=== PATIENT | female | born 1940 | race Caucasian/White ===

== ENCOUNTER 2017-02-28 16:12 | Observation (INO) | payer MEDICARE ==
[2017-02-28] MEDS ORDERED: MILK OF MAGNESIA 30 ML PO PRN (17:27)
[2017-02-28] MEDS ORDERED: TYLENOL 325 MG PO PRN (17:27)
[2017-02-28] MEDS ORDERED: MAALOX ES 30 ML UNIT DOSE PO PRN (17:27)
[2017-02-28] MEDS ORDERED: MORPHINE SULFATE 2 MG INJ IV PRN (17:27)
[2017-02-28] MEDS ORDERED: Nitrostat 0.4 MG Tablet SL PRN (17:27)
[2017-02-28] MEDS ORDERED: Senokot-S Tablet PO PRN (17:27)
[2017-02-28] MEDS ORDERED: Zofran 4 MG/2 ML VIAL IV PRN (17:27)
[2017-02-28] MEDS ORDERED: Phenergan 25 MG INJ IV PRN (17:27)
[2017-02-28] MEDS ORDERED: Sodium Chloride 0.9% 500 ML 500 ML IV SCH (17:30)
[2017-02-28] MEDS ORDERED: NovoLOG Insulin SQ PRN (17:34)
[2017-02-28 18:35] LABS: Hematocrit 35.5 % (35-47); Hemoglobin 11.4 gm/dl (12.0-16.0); Mean Cell Volume 95.4 fl (78-100); Mean Corpuscular Hemoglobin 30.6 pg (26-32); Mean Corpuscular Hgb Concent. 32.1 g/dl (32-36); Mean Platelet Volume 10.2 fl (6-9.5); Platelet Count 308 K/mm3 (150-450); Red Blood Count 3.72 M/mm3 (4.1-5.4); Red Cell Distribution Width 12.8 % (11.5-14.0)
[2017-02-28 19:28] LABS: ALBUMIN 3.5 g/dL (3.4-5.0); ANION GAP 12.7 MEQ/L (5-15); BILIRUBIN,TOTAL 0.2 mg/dL (0.2-1.0); Calcium 9.3 mg/dL (8.5-10.1); Carbon Dioxide 28.3 mEq/L (21-32); Creatinine 1 1.26 mg/dl (0.55-1.30); Potassium 4.4 mEq/L (3.5-5.1); Total Protein 7.4 gm/dL (6.4-8.2)
[2017-02-28] MEDS ORDERED: PLAVIX 75 MG Tablet PO SCH (22:00)
[2017-02-28] MEDS ORDERED: Lantus Insulin SQ SCH (22:00)
[2017-02-28] MEDS ORDERED: Toprol Xl 100 MG PO SCH (22:00)
[2017-02-28] MEDS ORDERED: NEURONTIN 300 MG ONE (22:07)
[2017-02-28] MEDS ORDERED: Neurontin 100 MG ONE (22:07)
[2017-02-28] MEDS: Neurontin 400 MG PO SCH (22:12)
[2017-03-01 06:17] LABS: Risk Ratio 2.7
[2017-03-01] MEDS ORDERED: NON-FORMULARY ITEM (Potassium Chloride 20 Meq [Klor-Con 20 Meq] 20 MEQ) PO SCH (06:45)
[2017-03-01] MEDS ORDERED: ERGOCALCIFEROL 5000 UNIT PO SCH (06:45)
[2017-03-01 07:49] VITALS: O2SAT 95
[2017-03-01] MEDS ORDERED: Amaryl 2 MG PO SCH (08:00)
[2017-03-01] MEDS ORDERED: Glucophage 500 MG PO SCH (08:00)
[2017-03-01] MEDS: Neurontin 400 MG PO SCH (09:11)
[2017-03-01] MEDS ORDERED: VITAMIN D PO SCH (10:00)
[2017-03-01] MEDS ORDERED: Lasix 40 MG PO SCH (10:00)
[2017-03-01] MEDS ORDERED: Klor Con 10 MEQ PO SCH (10:00)
[2017-03-01] MEDS ORDERED: Imdur 60MG PO SCH (10:00)
[2017-03-01] MEDS ORDERED: Zestril 20 MG PO SCH (10:00)
[2017-03-01] MEDS ORDERED: hydroDIURIL 25 MG PO SCH (10:00)
[2017-03-01] MEDS ORDERED: NON-FORMULARY ITEM (Lisinopril [Lisinopril] 40 MG) PO SCH (10:00)
--- NOTE | 2017-03-01 12:25 | PCM.SSS ---
History of Present Illness - Chief Complaint Chief Complaint: Chest Pain R/O [place] History of Present Illness: see H&P - Review of Systems Constitutional: No Fever, No Chills Eyes: No Symptoms Ears, Nose, & Throat: No Symptoms Respiratory: No Cough, No Short Of Breath Cardiac: Chest Pain, No Edema, No Syncope Abdominal/Gastrointestinal: No Abdominal Pain, No Nausea, No Vomiting, No Diarrhea Genitourinary Symptoms: No Dysuria Musculoskeletal: No Back Pain, No Neck Pain Skin: No Rash Neurological: No Dizziness, No Focal Weakness, No Sensory Changes Psychological: No Symptoms Endocrine: No Symptoms Hematologic/Lymphatic: No Symptoms Immunological/Allergic: No Symptoms Medications & Allergies Home Medications: Home Medication List Metoprolol Succinate 100 mg [Toprol Xl 100 MG] 100 mg PO HS 10/03/11 [ History Confirmed 02/28/17] Glimepiride 2 mg [Amaryl 2 MG] 2 mg PO BIDWM 10/04/11 [History Confirmed 02/28/17] Hydrochlorothiazide 25 mg [hydroDIURIL 25 MG] 25 mg PO DAILY 10/04/11 [ History Confirmed 02/28/17] Lisinopril 40 mg PO DAILY 10/04/11 [History Confirmed 02/28/17] Lovastatin 80 mg PO HS 10/04/11 [History Confirmed 02/28/17] Clopidogrel Bisulfate 75 mg [PLAVIX 75 MG Tablet] 75 mg PO HS 02/28/17 [ History Confirmed 02/28/17] Ergocalciferol (Vitamin D2) [Vitamin D2] 5,000 unit PO MOWEFR 02/28/17 [History Confirmed 02/28/17] Furosemide 40 mg [Lasix 40 MG] 40 mg PO MOWEFR 02/28/17 [History Confirmed 02/28/17] Gabapentin 400 mg [Neurontin 400 MG] 400 mg PO BID 02/28/17 [History Confirmed 02/28/17] Insulin Detemir [Levemir Flextouch] 36 unit SQ HS 02/28/17 [History Confirmed ] Isosorbide Mononitrate 60 mg [Imdur 60MG] 60 mg PO DAILY 02/28/17 [History Confirmed 02/28/17] Metformin HCl 500 mg PO BIDWM 02/28/17 [History Confirmed 02/28/17] Potassium Chloride 20 Meq [Klor-Con 20 MEQ] 20 meq PO MOWEFR 02/28/17 [History Confirmed 02/28/17] Allergies/Adverse Reactions: Allergies Allergy/AdvReac Type Severity Reaction Status Date / Time Penicillins Allergy Verified 12/08/11 18:39 Sulfa (Sulfonamide Allergy Verified 12/08/11 18:39 Antibiotics) [Sulfa(Sulfonamide Antibiotics)] - Past Medical History Past Medical History: Yes Neurological History: No Pertinent History ENT History: Cataracts Cardiac History: Angina, Deep Vein Thrombosis, High Cholesterol, Hypertension Respiratory History: No Pertinent History Endocrine Medical History: Diabetes Type II Musculoskelatal History: Arthritis, Fractures GI Medical History: Gallbladder Disease History: No Pertinent History Pyscho-Social History: Anxiety Reproductive Disorders: Cervical Cancer, Other Comment: past hx hysterectomy in the '70s - Female History Are you now?: No - Past Surgical History Past Surgical History: Yes Neuro Surgical History: No Pertinent History Cardiac History: Cardiac Catheterization Respiratory Surgery: No Pertinent History GI Surgical History: Cholecystectomy Genitourinary Surgical Hx: No Pertinent History Musculskeletal Surgical Hx: Orthopedic Surgery Female Surgical History: Hysterectomy Other Surgical History: ANKLE, KNEE, SHOULDER SURGERY, cataract surgery both eyes - Social History Smoking Status: Never smoker Exposure to second hand smoke: No Alcohol: None Drug Use: none Significant Family History: no pertinent family hx - Physical Exam Vital Signs: Vital Signs - 24 hr Temp Pulse Resp BP Pulse Ox 03/01/17 07:48 97.9 F 57 L 16 136/61 95 03/01/17 07:30 57 L 03/01/17 04:00 97.4 F 58 L 16 131/94 98 03/01/17 00:01 81 02/28/17 23:56 98.1 F 81 17 139/61 98 02/28/17 20:00 98.6 F 75 16 167/72 98 02/28/17 17:52 98.7 F 84 18 140/89 97 02/28/17 17:31 98 02/28/17 17:27 85 General Appearance: no apparent distress, alert Neurologic Exam: alert, oriented x 3, cooperative, normal mood/affect, nml cerebellar function, nml station & gait, sensation nml, No motor deficits Eye Exam: PERRL/EOMI, eyes nml inspection Ears, Nose, Throat Exam: normal ENT inspection, TMs normal, pharynx normal, moist mucous membranes Neck Exam: normal inspection, non-tender, supple, full range of motion Respiratory Exam: normal breath sounds, lungs clear, No respiratory distress Cardiovascular Exam: regular rate/rhythm, normal heart sounds, normal peripheral pulses Gastrointestinal/Abdomen Exam: soft, normal bowel sounds, No tenderness, No mass Back Exam: normal inspection, normal range of motion, No CVA tenderness, No vertebral tenderness Extremity Exam: normal inspection, normal range of motion, pelvis stable Skin Exam: normal color, warm, dry, No rash Lymphatic Exam: No adenopathy Results - Labs Lab/Micro Results: Accuchecks Date 03/01/17 Date 03/01/17 Date 03/01/17 Date 02/28/17 Time 11:24 Time 06:46 Time 06:46 Time 21:30 Accucheck Value: 135 Accucheck Value: 75 Accucheck Value: 75 Accucheck Value: 201 Lab Results-Last 24 Hours 02/28/17 02/28/17 02/28/17 Range/Units 17:45 17:45 17:45 WBC 9.0 (4.0-10.5) K/mm3 RBC 3.72 L (4.1-5.4) M/mm3 Hgb 11.4 L (12.0-16.0) gm/dl Hct 35.5 (35-47) % MCV 95.4 (78-100) fl MCH 30.6 (26-32) pg MCHC 32.1 (32-36) g/dl RDW 12.8 (11.5-14.0) % Plt Count 308 (150-450) K/mm3 MPV 10.2 H (6-9.5) fl Sodium 143 (136-145) mEq/L Potassium 4.4 (3.5-5.1) mEq/L Chloride 106 (98-107) mEq/L Carbon Dioxide 28.3 (21-32) mEq/L Anion Gap 12.7 (5-15) MEQ/L BUN 26 H (9-20) mg/dL Creatinine 1.26 (0.55-1.30) mg/dl Estimated GFR 44 ML/MIN Glucose 168 H (70-110) MG/DL Hemoglobin A1c (4.5-6.2) Calcium 9.3 (8.5-10.1) mg/dL Total Bilirubin 0.20 (0.2-1.0) mg/dL AST 16 (15-37) U/L ALT 18 (12-78) U/L Alkaline Phosphatase 61 (46-116) U/L Troponin I (0.000-0.056) ng/ml NT-Pro-B Natriuret Pep 2047 H (0-450) pg/ml Serum Total Protein 7.4 (6.4-8.2) gm/dL Albumin 3.5 (3.4-5.0) g/dL Triglycerides (30-200) mg/dL Cholesterol (100-200) mg/dL LDL Cholesterol (5-99) mg/dL HDL Cholesterol (35-60) mg/dL Heart Disease Risk Ratio 02/28/17 02/28/17 02/28/17 Range/Units 17:58 20:43 23:38 WBC (4.0-10.5) K/mm3 RBC (4.1-5.4) M/mm3 Hgb (12.0-16.0) gm/dl Hct (35-47) % MCV (78-100) fl MCH (26-32) pg MCHC (32-36) g/dl RDW (11.5-14.0) % Plt Count (150-450) K/mm3 MPV (6-9.5) fl Sodium (136-145) mEq/L Potassium (3.5-5.1) mEq/L Chloride (98-107) mEq/L Carbon Dioxide (21-32) mEq/L Anion Gap (5-15) MEQ/L BUN (9-20) mg/dL Creatinine (0.55-1.30) mg/dl Estimated GFR ML/MIN Glucose (70-110) MG/DL Hemoglobin A1c (4.5-6.2) Calcium (8.5-10.1) mg/dL Total Bilirubin (0.2-1.0) mg/dL AST (15-37) U/L ALT (12-78) U/L Alkaline Phosphatase (46-116) U/L Troponin I 0.023 0.020 0.020 (0.000-0.056) ng/ml NT-Pro-B Natriuret Pep (0-450) pg/ml Serum Total Protein (6.4-8.2) gm/dL Albumin (3.4-5.0) g/dL Triglycerides (30-200) mg/dL Cholesterol (100-200) mg/dL LDL Cholesterol (5-99) mg/dL HDL Cholesterol (35-60) mg/dL Heart Disease Risk Ratio 03/01/17 03/01/17 03/01/17 Range/Units 02:40 04:00 05:00 WBC (4.0-10.5) K/mm3 RBC (4.1-5.4) M/mm3 Hgb (12.0-16.0) gm/dl Hct (35-47) % MCV (78-100) fl MCH (26-32) pg MCHC (32-36) g/dl RDW (11.5-14.0) % Plt Count (150-450) K/mm3 MPV (6-9.5) fl Sodium (136-145) mEq/L Potassium (3.5-5.1) mEq/L Chloride (98-107) mEq/L Carbon Dioxide (21-32) mEq/L Anion Gap (5-15) MEQ/L BUN (9-20) mg/dL Creatinine (0.55-1.30) mg/dl Estimated GFR ML/MIN Glucose (70-110) MG/DL Hemoglobin A1c 8.3 H (4.5-6.2) Calcium (8.5-10.1) mg/dL Total Bilirubin (0.2-1.0) mg/dL AST (15-37) U/L ALT (12-78) U/L Alkaline Phosphatase (46-116) U/L Troponin I 0.022 (0.000-0.056) ng/ml NT-Pro-B Natriuret Pep (0-450) pg/ml Serum Total Protein (6.4-8.2) gm/dL Albumin (3.4-5.0) g/dL Triglycerides 87 (30-200) mg/dL Cholesterol 117 (100-200) mg/dL LDL Cholesterol 52 (5-99) mg/dL HDL Cholesterol 44 (35-60) mg/dL Heart Disease Risk Ratio 2.7 03/01/17 Range/Units 05:30 WBC (4.0-10.5) K/mm3 RBC (4.1-5.4) M/mm3 Hgb (12.0-16.0) gm/dl Hct (35-47) % MCV (78-100) fl MCH (26-32) pg MCHC (32-36) g/dl RDW (11.5-14.0) % Plt Count (150-450) K/mm3 MPV (6-9.5) fl Sodium (136-145) mEq/L Potassium (3.5-5.1) mEq/L Chloride (98-107) mEq/L Carbon Dioxide (21-32) mEq/L Anion Gap (5-15) MEQ/L BUN (9-20) mg/dL Creatinine (0.55-1.30) mg/dl Estimated GFR ML/MIN Glucose (70-110) MG/DL Hemoglobin A1c (4.5-6.2) Calcium (8.5-10.1) mg/dL Total Bilirubin (0.2-1.0) mg/dL AST (15-37) U/L ALT (12-78) U/L Alkaline Phosphatase (46-116) U/L Troponin I 0.020 (0.000-0.056) ng/ml NT-Pro-B Natriuret Pep (0-450) pg/ml Serum Total Protein (6.4-8.2) gm/dL Albumin (3.4-5.0) g/dL Triglycerides (30-200) mg/dL Cholesterol (100-200) mg/dL LDL Cholesterol (5-99) mg/dL HDL Cholesterol (35-60) mg/dL Heart Disease Risk Ratio Accuchecks Date 03/01/17 Date 03/01/17 Date 03/01/17 Date 02/28/17 Time 11:24 Time 06:46 Time 06:46 Time 21:30 Accucheck Value: 135 Accucheck Value: 75 Accucheck Value: 75 Accucheck Value: 201 - Radiology Impressions Radiology Exams & Impressions: Radiology Procedures Category Date Time Status ECHO W/2D AND DOPPLER [US] Routine Exams 03/01/17 08:00 Taken - Other Procedures and Tests Respiratory Therapy 03/02/17 05:00 EKG DAILY 03/03/17 05:00 EKG DAILY 03/04/17 05:00 EKG DAILY Assessment/Plan (1) Chest pain Current Visit: Yes Status: Acute Code(s): R07.9 - CHEST PAIN, UNSPECIFIED Hospital Summary - Hospital Course Hospital Course: Chief Complaint Diagnosis Chest Pain R/O [place] Allergies Allergy/AdvReac Type Severity Reaction Status Date / Time Penicillins Allergy Verified 12/08/11 18:39 Sulfa (Sulfonamide Allergy Verified 12/08/11 18:39 Antibiotics) [Sulfa(Sulfonamide Antibiotics)] Vital Signs (Last 24 hours) Temp Pulse Resp BP Pulse Ox 03/01/17 07:48 97.9 F 57 L 16 136/61 95 03/01/17 07:30 57 L 03/01/17 04:00 97.4 F 58 L 16 131/94 98 03/01/17 00:01 81 02/28/17 23:56 98.1 F 81 17 139/61 98 02/28/17 20:00 98.6 F 75 16 167/72 98 02/28/17 17:52 98.7 F 84 18 140/89 97 02/28/17 17:31 98 02/28/17 17:27 85 Home Medications Medication Instructions Recorded Confirmed Last Taken Type Clopidogrel Bisulfate 75 mg 75 mg PO HS 02/28/17 02/28/17 02/27/17 History [PLAVIX 75 MG Tablet] Ergocalciferol (Vitamin D2) 5,000 unit PO MOWEFR 02/28/17 02/28/17 02/27/17 History [Vitamin D2] Furosemide 40 mg [Lasix 40 40 mg PO MOWEFR 02/28/17 02/28/17 02/27/17 History MG] Gabapentin 400 mg [Neurontin 400 mg PO BID 02/28/17 02/28/17 02/28/17 History 400 MG] Insulin Detemir [Levemir Flextouch] 36 unit SQ HS 02/28/17 02/28/17 02/27/17 History Isosorbide Mononitrate 60 mg 60 mg PO DAILY 02/28/17 02/28/17 02/28/17 History [Imdur 60MG] Metformin HCl [Metformin HCl] 500 mg PO BIDWM 02/28/17 02/28/17 02/28/17 History Potassium Chloride 20 Meq 20 meq PO MOWEFR 02/28/17 02/28/17 02/27/17 History [Klor-Con 20 MEQ] Current Medications Generic Name Dose Route Start Last Admin Trade Name Freq PRN Reason Stop Dose Admin Acetaminophen 325 - 650 mg 02/28/17 17:27 Tylenol 325 Mg PO 03/30/17 17:26 Q4H PRN PRN FOR TEMP > 101 OR MILD PAIN Al Hydrox/Mg Hydrox/Simethicone 30 ml 02/28/17 17:27 Maalox Es 30 Ml Unit Dose PO 03/30/17 17:26 PRN PRN INDIGESTION Cholecalciferol 5,000 unit 03/01/17 10:00 03/01/17 09:11 Vitamin D PO 03/31/17 09:59 5,000 unit MoWeFr PERFECTO Administration Clopidogrel Bisulfate 75 mg 02/28/17 22:00 02/28/17 22:12 Plavix 75 Mg Tablet PO 03/30/17 21:59 75 mg HS PERFECTO Administration Furosemide 40 mg 03/01/17 10:00 03/01/17 09:12 Lasix 40 Mg PO 03/31/17 09:59 40 mg MOWEFR PERFECTO Administration Gabapentin 400 mg 02/28/17 22:00 03/01/17 09:11 Neurontin 400 Mg PO 03/30/17 21:59 400 mg BID PERFECTO Administration Glimepiride 2 mg 03/01/17 08:00 03/01/17 07:59 Amaryl 2 Mg PO 03/31/17 07:59 2 mg BIDWM PERFECTO Administration Hydrochlorothiazide 25 mg 03/01/17 10:00 03/01/17 09:12 Hydrodiuril 25 Mg PO 03/31/17 09:59 25 mg DAILY PERFECTO Administration Sodium Chloride 500 mls @ 20 mls/hr 02/28/17 17:30 02/28/17 18:08 Sodium Chloride 0.9% 500 Ml IV 03/30/17 17:29 20 mls/hr .Q24H PERFECTO Administration Insulin Aspart 0 unit 02/28/17 17:34 Novolog Insulin SQ 03/30/17 17:33 UD PRN HYPERGLYCEMIA Insulin Glargine 36 unit 02/28/17 22:00 02/28/17 22:11 Lantus Insulin SQ 03/30/17 21:59 36 unit HS PERFECTO Administration Isosorbide Mononitrate 60 mg 03/01/17 10:00 03/01/17 09:12 Imdur 60mg PO 03/31/17 09:59 60 mg DAILY PERFECTO Administration Lisinopril 40 mg 03/01/17 10:00 03/01/17 09:11 Zestril 20 Mg PO 03/31/17 09:59 40 mg DAILY PERFECTO Administration Magnesium Hydroxide 30 - 60 ml 02/28/17 17:27 Milk Of Magnesia 30 Ml PO 03/30/17 17:26 HS PRN CONSTIPATION Metformin HCl 500 mg 03/01/17 08:00 03/01/17 07:59 Glucophage 500 Mg PO 03/31/17 07:59 500 mg BIDWM PERFECTO Administration Metoprolol Succinate 100 mg 02/28/17 22:00 02/28/17 22:12 Toprol Xl 100 Mg PO 03/30/17 21:59 100 mg HS PERFECTO Administration Morphine Sulfate 2 - 8 mg 02/28/17 17:27 Morphine Sulfate 2 Mg Inj IV 03/05/17 17:26 PRN PRN PAIN Nitroglycerin 0.4 mg 02/28/17 17:27 Nitrostat 0.4 Mg Tablet SL 03/30/17 17:26 .Q5MIN PRN CHEST PAIN Ondansetron HCl 4 mg 02/28/17 17:27 Zofran 4 Mg/2 Ml Vial IV 03/30/17 17:26 Q4H PRN PRN NAUSEA/VOMITING Potassium Chloride 20 meq 03/01/17 10:00 03/01/17 09:11 Klor Con 10 Meq PO 03/31/17 09:59 20 meq MoWeFr PERFECTO Administration Promethazine HCl 12.5 - 25 mg 02/28/17 17:27 Phenergan 25 Mg Inj IV 03/30/17 17:26 Q4H PRN PRN NAUSEA/VOMITING Senna/Docusate Sodium 2 udtab 02/28/17 17:27 Senokot-S Tablet PO 03/30/17 17:26 BID PRN PRN CONSTIPATION Simvastatin 40 mg 03/01/17 22:00 Zocor 20mg PO 03/31/17 21:59 HS PERFECTO Discontinued Medications Generic Name Dose Route Start Last Admin Trade Name Nanci PRN Reason Stop Dose Admin Gabapentin Confirm 02/28/17 22:07 Neurontin 300 Mg Administered 02/28/17 22:08 Dose 300 mg .ROUTE .STK-MED ONE Gabapentin Confirm 02/28/17 22:07 Neurontin 100 Mg Administered 02/28/17 22:08 Dose 100 mg .ROUTE .STK-MED ONE Intake & Output (Last 24 hours) 02/27/17 02/28/17 03/01/17 03/02/17 11:59 11:59 11:59 11:59 Intake Total 585 Output Total 1650 Balance -1065 Weight 73.7 kg Laboratory Results (Last 24 hours) 03/01/17 03/01/17 03/01/17 05:30 05:00 04:00 WBC RBC Hgb Hct MCV MCH MCHC RDW Plt Count MPV Sodium Potassium Chloride Carbon Dioxide Anion Gap BUN Creatinine Estimated GFR Glucose Hemoglobin A1c 8.3 H Calcium Total Bilirubin AST ALT Alkaline Phosphatase Troponin I 0.020 NT-Pro-B Natriuret Pep Serum Total Protein Albumin Triglycerides 87 Cholesterol 117 LDL Cholesterol 52 HDL Cholesterol 44 Heart Disease Risk Ratio 2.7 03/01/17 02/28/17 02/28/17 02:40 23:38 20:43 WBC RBC Hgb Hct MCV MCH MCHC RDW Plt Count MPV Sodium Potassium Chloride Carbon Dioxide Anion Gap BUN Creatinine Estimated GFR Glucose Hemoglobin A1c Calcium Total Bilirubin AST ALT Alkaline Phosphatase Troponin I 0.022 0.020 0.020 NT-Pro-B Natriuret Pep Serum Total Protein Albumin Triglycerides Cholesterol LDL Cholesterol HDL Cholesterol Heart Disease Risk Ratio 02/28/17 02/28/17 02/28/17 17:58 17:45 17:45 WBC RBC Hgb Hct MCV MCH MCHC RDW Plt Count MPV Sodium 143 Potassium 4.4 Chloride 106 Carbon Dioxide 28.3 Anion Gap 12.7 BUN 26 H Creatinine 1.26 Estimated GFR 44 Glucose 168 H Hemoglobin A1c Calcium 9.3 Total Bilirubin 0.20 AST 16 ALT 18 Alkaline Phosphatase 61 Troponin I 0.023 NT-Pro-B Natriuret Pep 2047 H Serum Total Protein 7.4 Albumin 3.5 Triglycerides Cholesterol LDL Cholesterol HDL Cholesterol Heart Disease Risk Ratio 02/28/17 17:45 WBC 9.0 RBC 3.72 L Hgb 11.4 L Hct 35.5 MCV 95.4 MCH 30.6 MCHC 32.1 RDW 12.8 Plt Count 308 MPV 10.2 H Sodium Potassium Chloride Carbon Dioxide Anion Gap BUN Creatinine Estimated GFR Glucose Hemoglobin A1c Calcium Total Bilirubin AST ALT Alkaline Phosphatase Troponin I NT-Pro-B Natriuret Pep Serum Total Protein Albumin Triglycerides Cholesterol LDL Cholesterol HDL Cholesterol Heart Disease Risk Ratio Orders (Last 24 hours) Category Date Time Status Bedrest with BRP/BSC TOLERATED Activity 02/28/17 17:27 Active Accucheck ACHS Care 02/28/17 17:27 Active Admission/Status Order ROUTINE Care 02/28/17 17:27 Active Director Surgical CONTINUOUS Care 02/28/17 17:27 Active IV Care Q6H Care 02/28/17 17:27 Active IV Insertion STAT Care 02/28/17 17:27 Active Implement Chest Pain Pathway ROUTINE Care 02/28/17 17:27 Active Miscellaneous Nursing Order ROUTINE Care 02/28/17 18:54 Active Saleem Delacruz, Apply ROUTINE Care 02/28/17 17:27 Active Weight,Daily 0600 Care 02/28/17 17:27 Active Consult Cardiology ROUTINE Cons 02/28/17 17:28 Active Field Service Manager/Discharge Plan Cons 02/28/17 18:27 Active Cardiac Diet Diet 02/28/17 Dinner Active Nutritional Admission Screen Diet 02/28/17 18:27 Active ECHO W/2D AND DOPPLER [US] Routine Exams 03/01/17 08:00 Taken BNP [NT PRO BNP] Urgent Lab 02/28/17 17:45 Completed CBC Urgent Lab 02/28/17 17:45 Completed CMP Urgent Lab 02/28/17 17:45 Completed HEMOGLOBIN A1C Routine Lab 03/01/17 05:00 Completed LIPID PROFILE AM.LAB Lab 03/01/17 04:00 Completed TROPONIN Q3H Lab 02/28/17 17:58 Completed TROPONIN Q3H Lab 02/28/17 20:43 Completed TROPONIN Q3H Lab 02/28/17 23:38 Completed TROPONIN Q3H Lab 03/01/17 02:40 Completed TROPONIN Q3H Lab 03/01/17 05:30 Completed Acetaminophen 325 mg [Tylenol 325 mg] Med 01/23/18 17:27 Active 325 - 650 mg PO Q4H PRN PRN Cholecalciferol (Vitamin D3) [Vitamin D] Med 03/01/17 10:00 Active 5,000 unit PO MoWeFr Clopidogrel Bisulfate 75 mg [PLAVIX 75 MG Tablet] Med 02/28/17 22:00 Active 75 mg PO HS Furosemide 40 mg [Lasix 40 MG] Med 03/01/17 10:00 Active 40 mg PO MOWEFR Gabapentin 100 mg [Neurontin 100 MG] Med 02/28/17 22:07 Discontinued 100 mg .ROUTE .STK-MED ONE Gabapentin 300 mg [Neurontin 300 mg] Med 02/28/17 22:07 Discontinued 300 mg .ROUTE .STK-MED ONE Gabapentin 400 mg [Neurontin 400 MG] Med 02/28/17 22:00 Active 400 mg PO BID Glimepiride 2 mg [Amaryl 2 MG] Med 03/01/17 08:00 Active 2 mg PO BIDWM Hydrochlorothiazide 25 mg [hydroDIURIL 25 MG] Med 03/01/17 10:00 Active 25 mg PO DAILY Insulin Aspart [NovoLOG Insulin] Med 02/28/17 17:34 Active See Dose Instructions SQ UD PRN Insulin Glargine [Lantus Insulin] Med 02/28/17 22:00 Active 36 unit SQ HS Isosorbide Mononitrate 60 mg [Imdur 60MG] Med 03/01/17 10:00 Active 60 mg PO DAILY Lisinopril 20 mg [Zestril 20 MG] Med 03/01/17 10:00 Active 40 mg PO DAILY Mag Hydrox/Al Hydrox/Simeth [Maalox Es 30 ml Unit Med 02/28/17 17:27 Active Dose] 30 ml PO PRN PRN Magnesium Hydroxide 30 ml [Milk of Magnesia 30 ml Med 02/28/17 17:27 Active ] 30 - 60 ml PO HS PRN Metformin HCl 500 mg [Glucophage 500 MG] Med 03/01/17 08:00 Active 500 mg PO BIDWM Metoprolol Succinate 100 mg [Toprol Xl 100 MG] Med 02/28/17 22:00 Active 100 mg PO HS Morphine Sulfate 2 mg Inj Med 02/28/17 17:27 Active 2 - 8 mg IV PRN PRN NaCl 0.9% 500 ml [Sodium Chloride 0.9% 500 ML] 500 ml Med 02/28/17 17:30 Active IV 20 mls/hr Nitroglycerin 0.4 mg Tablet [Nitrostat 0.4 MG Tablet Med 02/28/17 17:27 Active ] 0.4 mg SL .Q5MIN PRN Ondansetron HCl 4 mg/2 ml [Zofran 4 MG/2 ML VIAL] Med 02/28/17 17:27 Active 4 mg IV Q4H PRN PRN Potassium Chloride 10 Meq Tab* [Klor Con 10 MEQ] Med 03/01/17 10:00 Active 20 meq PO MoWeFr Promethazine HCl 25 mg Amp [Phenergan 25 MG INJ] Med 02/28/17 17:27 Active 12.5 - 25 mg IV Q4H PRN PRN Senna/Docusate Sodium Tab [Senokot-S Tablet] Med 02/28/17 17:27 Active 2 udtab PO BID PRN PRN Simvastatin 20Mg [Zocor 20Mg] Med 03/01/17 22:00 Active 40 mg PO HS EKG DAILY RT 03/02/17 05:00 Active EKG DAILY RT 03/03/17 05:00 Active EKG DAILY RT 03/04/17 05:00 Active EKG Q8HX2,QAMX3,PRN RT 02/28/17 17:27 Completed EKG ROUTINE RT 02/28/17 18:40 Completed EKG ROUTINE RT 03/01/17 02:40 Completed - Vitals & Intake/Output Vital Signs: Vital Signs Temperature 97.9 F 03/01/17 07:48 Pulse Rate 57 L 03/01/17 07:48 Respiratory Rate 16 03/01/17 07:48 Blood Pressure 136/61 03/01/17 07:48 O2 Sat by Pulse Oximetry 95 03/01/17 07:48 Intake & Output: Intake & Output 02/27/17 02/28/17 03/01/17 03/02/17 11:59 11:59 11:59 11:59 Intake Total 585 Output Total 1650 Balance -1065 Weight 73.7 kg - Lab Result Diagrams: 02/28/17 17:45 02/28/17 17:45 Lab Results-Last 24 Hrs: Accuchecks Date 03/01/17 Date 03/01/17 Date 03/01/17 Date 02/28/17 Time 11:24 Time 06:46 Time 06:46 Time 21:30 Accucheck Value: 135 Accucheck Value: 75 Accucheck Value: 75 Accucheck Value: 201 Lab Results-Last 24 Hours 02/28/17 02/28/17 02/28/17 Range/Units 17:45 17:45 17:45 WBC 9.0 (4.0-10.5) K/mm3 RBC 3.72 L (4.1-5.4) M/mm3 Hgb 11.4 L (12.0-16.0) gm/dl Hct 35.5 (35-47) % MCV 95.4 (78-100) fl MCH 30.6 (26-32) pg MCHC 32.1 (32-36) g/dl RDW 12.8 (11.5-14.0) % Plt Count 308 (150-450) K/mm3 MPV 10.2 H (6-9.5) fl Sodium 143 (136-145) mEq/L Potassium 4.4 (3.5-5.1) mEq/L Chloride 106 (98-107) mEq/L Carbon Dioxide 28.3 (21-32) mEq/L Anion Gap 12.7 (5-15) MEQ/L BUN 26 H (9-20) mg/dL Creatinine 1.26 (0.55-1.30) mg/dl Estimated GFR 44 ML/MIN Glucose 168 H (70-110) MG/DL Hemoglobin A1c (4.5-6.2) Calcium 9.3 (8.5-10.1) mg/dL Total Bilirubin 0.20 (0.2-1.0) mg/dL AST 16 (15-37) U/L ALT 18 (12-78) U/L Alkaline Phosphatase 61 (46-116) U/L Troponin I (0.000-0.056) ng/ml NT-Pro-B Natriuret Pep 2047 H (0-450) pg/ml Serum Total Protein 7.4 (6.4-8.2) gm/dL Albumin 3.5 (3.4-5.0) g/dL Triglycerides (30-200) mg/dL Cholesterol (100-200) mg/dL LDL Cholesterol (5-99) mg/dL HDL Cholesterol (35-60) mg/dL Heart Disease Risk Ratio 02/28/17 02/28/17 02/28/17 Range/Units 17:58 20:43 23:38 WBC (4.0-10.5) K/mm3 RBC (4.1-5.4) M/mm3 Hgb (12.0-16.0) gm/dl Hct (35-47) % MCV (78-100) fl MCH (26-32) pg MCHC (32-36) g/dl RDW (11.5-14.0) % Plt Count (150-450) K/mm3 MPV (6-9.5) fl Sodium (136-145) mEq/L Potassium (3.5-5.1) mEq/L Chloride (98-107) mEq/L Carbon Dioxide (21-32) mEq/L Anion Gap (5-15) MEQ/L BUN (9-20) mg/dL Creatinine (0.55-1.30) mg/dl Estimated GFR ML/MIN Glucose (70-110) MG/DL Hemoglobin A1c (4.5-6.2) Calcium (8.5-10.1) mg/dL Total Bilirubin (0.2-1.0) mg/dL AST (15-37) U/L ALT (12-78) U/L Alkaline Phosphatase (46-116) U/L Troponin I 0.023 0.020 0.020 (0.000-0.056) ng/ml NT-Pro-B Natriuret Pep (0-450) pg/ml Serum Total Protein (6.4-8.2) gm/dL Albumin (3.4-5.0) g/dL Triglycerides (30-200) mg/dL Cholesterol (100-200) mg/dL LDL Cholesterol (5-99) mg/dL HDL Cholesterol (35-60) mg/dL Heart Disease Risk Ratio 03/01/17 03/01/17 03/01/17 Range/Units 02:40 04:00 05:00 WBC (4.0-10.5) K/mm3 RBC (4.1-5.4) M/mm3 Hgb (12.0-16.0) gm/dl Hct (35-47) % MCV (78-100) fl MCH (26-32) pg MCHC (32-36) g/dl RDW (11.5-14.0) % Plt Count (150-450) K/mm3 MPV (6-9.5) fl Sodium (136-145) mEq/L Potassium (3.5-5.1) mEq/L Chloride (98-107) mEq/L Carbon Dioxide (21-32) mEq/L Anion Gap (5-15) MEQ/L BUN (9-20) mg/dL Creatinine (0.55-1.30) mg/dl Estimated GFR ML/MIN Glucose (70-110) MG/DL Hemoglobin A1c 8.3 H (4.5-6.2) Calcium (8.5-10.1) mg/dL Total Bilirubin (0.2-1.0) mg/dL AST (15-37) U/L ALT (12-78) U/L Alkaline Phosphatase (46-116) U/L Troponin I 0.022 (0.000-0.056) ng/ml NT-Pro-B Natriuret Pep (0-450) pg/ml Serum Total Protein (6.4-8.2) gm/dL Albumin (3.4-5.0) g/dL Triglycerides 87 (30-200) mg/dL Cholesterol 117 (100-200) mg/dL LDL Cholesterol 52 (5-99) mg/dL HDL Cholesterol 44 (35-60) mg/dL Heart Disease Risk Ratio 2.7 03/01/17 Range/Units 05:30 WBC (4.0-10.5) K/mm3 RBC (4.1-5.4) M/mm3 Hgb (12.0-16.0) gm/dl Hct (35-47) % MCV (78-100) fl MCH (26-32) pg MCHC (32-36) g/dl RDW (11.5-14.0) % Plt Count (150-450) K/mm3 MPV (6-9.5) fl Sodium (136-145) mEq/L Potassium (3.5-5.1) mEq/L Chloride (98-107) mEq/L Carbon Dioxide (21-32) mEq/L Anion Gap (5-15) MEQ/L BUN (9-20) mg/dL Creatinine (0.55-1.30) mg/dl Estimated GFR ML/MIN Glucose (70-110) MG/DL Hemoglobin A1c (4.5-6.2) Calcium (8.5-10.1) mg/dL Total Bilirubin (0.2-1.0) mg/dL AST (15-37) U/L ALT (12-78) U/L Alkaline Phosphatase (46-116) U/L Troponin I 0.020 (0.000-0.056) ng/ml NT-Pro-B Natriuret Pep (0-450) pg/ml Serum Total Protein (6.4-8.2) gm/dL Albumin (3.4-5.0) g/dL Triglycerides (30-200) mg/dL Cholesterol (100-200) mg/dL LDL Cholesterol (5-99) mg/dL HDL Cholesterol (35-60) mg/dL Heart Disease Risk Ratio Micro Results-Entire Visit: Accuchecks Date 03/01/17 Date 03/01/17 Date 03/01/17 Date 02/28/17 Time 11:24 Time 06:46 Time 06:46 Time 21:30 Accucheck Value: 135 Accucheck Value: 75 Accucheck Value: 75 Accucheck Value: 201 - Radiology Exams Ordered Rad Exams-Entire Visit: Radiology Procedures Category Date Time Status ECHO W/2D AND DOPPLER [US] Routine Exams 03/01/17 08:00 Taken - Procedures and Test Procedures and Tests throughout Hospitalization: Therapy Orders & Screens 02/28/17 17:27 EKG [id number],QAMX3,PRN Comment: Diagnosis: Chest Pain 02/28/17 18:40 EKG ROUTINE Comment: Diagnosis: Chest Pain R/O [place] 03/01/17 02:40 EKG ROUTINE Comment: Diagnosis: Chest Pain R/O [place] 03/02/17 05:00 EKG DAILY Comment: Diagnosis: Chest Pain R/O [place] 03/03/17 05:00 EKG DAILY Comment: Diagnosis: Chest Pain R/O [place] 03/04/17 05:00 EKG DAILY Comment: Diagnosis: Chest Pain R/O [place] - Discharge Discharge Date: 03/01/17 Disposition: Home, Self-Care Condition: Stable Prescriptions: Continue Metoprolol Succinate 100 mg [Toprol Xl 100 MG] 100 mg PO HS Lovastatin 80 mg PO HS Lisinopril 40 mg PO DAILY Hydrochlorothiazide 25 mg [hydroDIURIL 25 MG] 25 mg PO DAILY Glimepiride 2 mg [Amaryl 2 MG] 2 mg PO BIDWM Clopidogrel Bisulfate 75 mg [PLAVIX 75 MG Tablet] 75 mg PO HS Gabapentin 400 mg [Neurontin 400 MG] 400 mg PO BID Metformin HCl 500 mg PO BIDWM Furosemide 40 mg [Lasix 40 MG] 40 mg PO MOWEFR Insulin Detemir [Levemir Flextouch] 36 unit SQ HS Isosorbide Mononitrate 60 mg [Imdur 60MG] 60 mg PO DAILY Ergocalciferol (Vitamin D2) [Vitamin D2] 5,000 unit PO MOWEFR Potassium Chloride 20 Meq [Klor-Con 20 MEQ] 20 meq PO MOWEFR Follow up with: GRACE GARCIA MD [Primary Care Provider] - 1 Week
[2017-03-01 12:56] VITALS: PULSE 73
[2017-03-01 12:57] VITALS: BP 149/80
[2017-03-01] MEDS ORDERED: ZOCOR 20MG PO SCH (22:00)
[2017-03-01] MEDS ORDERED: LOVASTATIN 80 MG PO SCH (22:00)
--- NOTE | 2017-03-03 13:33 | ECHO ---
DATE OF PROCEDURE: 03/01/2017 CLINICAL INFORMATION: Chest pain. The M-mode 2D, and Doppler echocardiogram including color flow Doppler shows the left ventricle is mildly dilated with a dimension of 5.9 cm. There is no evidence of apical thrombus present. The septal wall thickness is increased at 1.7 cm. The left ventricular posterior wall thickness is 1.1 cm. The ejection fraction is calculated at 42%. There appears to be mild diffuse decrease in left ventricular contractility. The right ventricle appears to be normal in size and function. The left atrium is normal at 3.2 cm. The interatrial septum is intact. The right atrium is normal. The aortic valve is not well visualized. There is evidence of aortic regurgitation present. There is calcification of the mitral valve annulus. There is mild mitral regurgitation present. There is mild tricuspid regurgitation. The right ventricular systolic pressure is upper limit of normal being 30 mm of Mercury. The pulmonic valve is not well visualized. The aortic root was not well visualized. There is no pericardial effusion. IMPRESSION: 1) MILD DECREASE IN LEFT VENTRICULAR SYSTOLIC FUNCTION. 2) MILD LEFT VENTRICULAR DILATATION. 3) MODERATE ASYMETRIC LEFT VENTRICULAR HYPERTROPHY. 4) MILD MITRAL REGURGITATION. 5) MILD TRICUSPID REGURGITATION. 6) BORDERLINE MILD PULMONARY HYPERTENSION. 7) MILD AORTIC REGURGITATION.
== END 2017-03-01 14:19 | disposition home or self-care (01) ==
LOC: ICU 16:12
PROVIDERS: ADMIT General Practice; ATTEND General Practice
DX: R07.9 Chest pain, unspecified (principal); I10 Essential (primary) hypertension; E11.9 Type 2 diabetes mellitus without complications; Z79.4 Long term (current) use of insulin; E78.5 Hyperlipidemia, unspecified; Z79.899 Other long term (current) drug therapy; I25.10 Atherosclerotic heart disease of native coronary artery without angina pectoris
CPT/HCPCS: 36415; 80053; 80061; 82962; 83036; 83721; 83880; 84484; 85027; 93005; 93268; 93306; G0378; A9270-GY

== ENCOUNTER 2018-02-19 16:32 | Emergency (ER) | payer MEDICARE, SELFPAY ==
--- NOTE | 2018-02-19 16:39 | ERPHSYRPT ---
- History of Present Illness Time Seen by Provider: 02/19/18 16:38 Source: patient Exam Limitations: no limitations Physician History: 78 y/o white female presents with cough for a week. pt has h/o copd. pt has a lung scan scheduled for end of the month. pt denies cp. pt has a low grade fever. pt denies abd pain and denies n/v/d. pt thinks she has had keflex and z pack in the past Timing/Duration: week(s) (1), worse Cough Quality/Degree: dry cough Possible Cause: occasional episodes Associated Symptoms: fever, cough, No muscle aches, No shortness of breath, No sinus infection, No sore throat, No wheezing Allergies/Adverse Reactions: Penicillins Allergy (Verified 02/19/18 17:00) Sulfa (Sulfonamide Antibiotics) [Sulfa(Sulfonamide Antibiotics)] Allergy ( Verified 02/19/18 17:00) Home Medications: Metoprolol Succinate 100 mg [Toprol Xl 100 MG] 100 mg PO HS 10/03/11 [ History] Glimepiride 2 mg [Amaryl 2 MG] 2 mg PO BIDWM 10/04/11 [History] Hydrochlorothiazide 25 mg [hydroDIURIL 25 MG] 25 mg PO DAILY 10/04/11 [ History] Lisinopril 40 mg PO DAILY 10/04/11 [History] Lovastatin 80 mg PO HS 10/04/11 [History] Clopidogrel Bisulfate 75 mg [PLAVIX 75 MG Tablet] 75 mg PO HS 02/28/17 [ History] Ergocalciferol (Vitamin D2) [Vitamin D2] 5,000 unit PO MOWEFR 02/28/17 [History] Gabapentin 400 mg [Neurontin 400 MG] 400 mg PO BID 02/28/17 [History] Insulin Detemir [Levemir Flextouch] 36 unit SQ HS 02/28/17 [History] Isosorbide Mononitrate 60 mg [Imdur 60MG] 60 mg PO DAILY 02/28/17 [History] Metformin HCl 500 mg PO BIDWM 02/28/17 [History] Hx Tetanus, Diphtheria Vaccination/Date Given: No (PT UNSURE) Hx Influenza Vaccination/Date Given: Yes Hx Pneumococcal Vaccination/Date Given: Yes - Review of Systems Constitutional: Fever Eyes: No Symptoms Ears, Nose, & Throat: No Symptoms Respiratory: No Symptoms Cardiac: No Symptoms, No Chest Pain, No Palpitations, No Syncope Abdominal/Gastrointestinal: No Symptoms, No Abdominal Pain, No Nausea, No Vomiting, No Diarrhea Genitourinary Symptoms: No Symptoms Musculoskeletal: No Symptoms Skin: No Symptoms Neurological: No Symptoms Psychological: No Symptoms Endocrine: No Symptoms Hematologic/Lymphatic: No Symptoms Immunological/Allergic: No Symptoms All Other Systems: Reviewed and Negative - Past Medical History Pertinent Past Medical History: Yes Neurological History: No Pertinent History ENT History: Cataracts Cardiac History: Angina, Deep Vein Thrombosis, High Cholesterol, Hypertension Respiratory History: No Pertinent History Endocrine Medical History: Diabetes Type II Musculoskeletal History: Arthritis, Fractures GI Medical History: Gallbladder Disease History: No Pertinent History Psycho-Social History: Anxiety Female Reproductive Disorders: Cervical Cancer, Other Other Medical History: past hx hysterectomy in the ' - Past Surgical History Past Surgical History: Yes Neuro Surgical History: No Pertinent History Cardiac: Cardiac Catheterization Respiratory: No Pertinent History Gastrointestinal: Cholecystectomy Genitourinary: No Pertinent History Musculoskeletal: Orthopedic Surgery Female Surgical History: Hysterectomy Other Surgical History: ANKLE, KNEE, SHOULDER SURGERY, cataract surgery both eyes - Social History Smoking Status: Never smoker Exposure to second hand smoke: No Drug Use: none Patient Lives Alone: No Significant Family History: no pertinent family hx - Nursing Vital Signs Nursing Vital Signs: Initial Vital Signs Temperature 99.0 F 02/19/18 16:52 Pulse Rate 92 H 02/19/18 16:52 Respiratory Rate 20 02/19/18 16:52 Blood Pressure 157/71 02/19/18 16:52 O2 Sat by Pulse Oximetry 98 02/19/18 16:52 Pain Scale Pain Intensity 0 - Physical Exam General Appearance: no apparent distress, alert Eye Exam: PERRL/EOMI, eyes nml inspection Ears, Nose, Throat Exam: normal ENT inspection, TMs normal, moist mucous membranes Neck Exam: normal inspection, non-tender, supple, full range of motion Respiratory Exam: normal breath sounds, lungs clear, airway intact, No chest tenderness, No respiratory distress, No accessory muscle use, No rhonchi, No wheezing, No stridor Cardiovascular Exam: regular rate/rhythm, normal heart sounds, normal peripheral pulses Gastrointestinal/Abdomen Exam: soft, normal bowel sounds, No tenderness, No guarding Pelvic Exam: not done Rectal Exam: not done Back Exam: normal inspection, normal range of motion, No CVA tenderness, No vertebral tenderness Extremity Exam: normal inspection, normal range of motion, pelvis stable Neurologic Exam: alert, oriented x 3, cooperative, lap winder II-XII nml as tested Skin Exam: normal color, warm, dry Lymphatic Exam: No adenopathy SpO2 Interpretation: normal Oxygen Delivery: Room Air - Course Nursing assessment & vital signs reviewed: Yes Ordered Tests: Active Orders 24 hr Category Date Time Status IV Insertion STAT Care 02/19/18 17:12 Active Pulse Oximetry (ED) STAT Care 02/19/18 17:12 Active CHEST 1 VIEW (PORTABLE) Stat Exams 02/19/18 17:24 Taken CBC W DIFF Stat Lab 02/19/18 17:10 Completed CMP Stat Lab 02/19/18 17:10 Completed Lactic Acid Stat Lab 02/19/18 17:35 Completed NT PRO BNP Stat Lab 02/19/18 17:10 Completed Peak Expiratory Flow Rate ONCE RT 02/19/18 17:26 Active Respiratory Nebulizer STAT RT 02/19/18 17:13 Completed Respiratory Therapy Assessment DAILY RT 02/19/18 17:26 Active Medication Summary Discontinued Medications Generic Name Dose Route Start Last Admin Trade Name Freq PRN Reason Stop Dose Admin Hydrocodone Bitart/Acetaminophen 10 ml 02/19/18 19:36 Hydrocodone-Acetamin 2.5-108/5 Ml Solution PO 02/19/18 19:37 STAT STA Albuterol/Ipratropium 3 ml 02/19/18 17:12 02/19/18 17:20 Duoneb 0.5-3 Mg/3 Ml Neb IH 02/19/18 17:13 3 ml STAT ONE Administration Albuterol/Ipratropium Confirm 02/19/18 17:18 Duoneb 0.5-3 Mg/3 Ml Neb Administered 02/19/18 17:19 Dose 3 ml IH .STK-MED ONE Ceftriaxone Sodium/Dextrose 1 g in 50 mls @ 100 mls/hr 02/19/18 17:12 17:24 Rocephin 1 Gm-D5w 50 Ml Bag IV 02/19/18 17:41 100 ml/hr STAT STA 100 mls/hr Administration Ceftriaxone Sodium/Dextrose Confirm 02/19/18 17:17 Rocephin 1 Gm-D5w 50 Ml Bag Administered 02/19/18 17:18 Dose 1 g in 50 mls @ ud IV .STK-MED ONE Methylprednisolone Sodium Succinate 125 mg 02/19/18 17:12 02/19/18 17:23 Solu-Medrol 125 Mg IV 02/19/18 17:13 125 mg STAT ONE Administration Methylprednisolone Sodium Succinate Confirm 02/19/18 17:17 Solu-Medrol 125 Mg Administered 02/19/18 17:18 Dose 125 mg .ROUTE .STK-MED ONE Lab/Rad Data: Laboratory Result Diagrams 02/19/18 17:10 02/19/18 17:10 Laboratory Results 02/19/18 02/19/18 02/19/18 Range/Units 18:02 17:35 17:10 WBC (4.0-10.5) K/mm3 RBC (4.1-5.4) M/mm3 Hgb (12.0-16.0) gm/dl Hct (35-47) % MCV (78-100) fl MCH (26-32) pg MCHC (32-36) g/dl RDW (11.5-14.0) % Plt Count (150-450) K/mm3 MPV (6-9.5) fl Gran % (36.0-66.0) % Eos # (Auto) (0-0.5) Absolute Lymphs (auto) (1.0-4.6) Absolute Monos (auto) (0.0-1.3) Lymphocytes % (24.0-44.0) % Monocytes % (0.0-12.0) % Eosinophils % (0.00-5.0) % Basophils % (0.0-0.4) % Absolute Granulocytes (1.4-6.9) Basophils # (0-0.4) Sodium 138 (137-145) mmol/L Potassium 5.0 (3.5-5.1) mmol/L Chloride 103 (98-107) mmol/L Carbon Dioxide 26 (22-30) mmol/L Anion Gap 14.0 (5-15) MEQ/L BUN 34 H (7-17) mg/dL Creatinine 1.41 H (0.52-1.04) mg/dL Estimated GFR 38.5 ML/MIN Glucose 184 H (74-106) mg/dL Lactic Acid 1.7 (0.4-2.0) Calcium 9.6 (8.4-10.2) mg/dL Total Bilirubin 0.40 (0.2-1.3) mg/dL AST 16 (14-36) U/L ALT 18 (0-35) U/L Alkaline Phosphatase 88 (38-126) U/L NT-Pro-B Natriuret Pep 558 (0-1800) pg/mL Serum Total Protein 7.3 (6.3-8.2) g/dL Albumin 4.0 (3.5-5.0) g/dL Influenza Type A Ag NEGATIVE (NEGATIVE) Influenza Type B Ag NEGATIVE (NEGATIVE) RSV (PCR) NEGATIVE (Negative) 02/19/18 Range/Units 17:10 WBC 8.6 (4.0-10.5) K/mm3 RBC 3.29 L (4.1-5.4) M/mm3 Hgb 10.2 L (12.0-16.0) gm/dl Hct 31.7 L (35-47) % MCV 96.4 (78-100) fl MCH 31.0 (26-32) pg MCHC 32.2 (32-36) g/dl RDW 12.6 (11.5-14.0) % Plt Count 328 (150-450) K/mm3 MPV 10.1 H (6-9.5) fl Gran % 66.4 H (36.0-66.0) % Eos # (Auto) 0.20 (0-0.5) Absolute Lymphs (auto) 1.50 (1.0-4.6) Absolute Monos (auto) 1.15 (0.0-1.3) Lymphocytes % 17.4 L (24.0-44.0) % Monocytes % 13.3 H (0.0-12.0) % Eosinophils % 2.3 (0.00-5.0) % Basophils % 0.6 (0.0-0.4) % Absolute Granulocytes 5.73 (1.4-6.9) Basophils # 0.05 (0-0.4) Sodium (137-145) mmol/L Potassium (3.5-5.1) mmol/L Chloride (98-107) mmol/L Carbon Dioxide (22-30) mmol/L Anion Gap (5-15) MEQ/L BUN (7-17) mg/dL Creatinine (0.52-1.04) mg/dL Estimated GFR ML/MIN Glucose (74-106) mg/dL Lactic Acid (0.4-2.0) Calcium (8.4-10.2) mg/dL Total Bilirubin (0.2-1.3) mg/dL AST (14-36) U/L ALT (0-35) U/L Alkaline Phosphatase (38-126) U/L NT-Pro-B Natriuret Pep (0-1800) pg/mL Serum Total Protein (6.3-8.2) g/dL Albumin (3.5-5.0) g/dL Influenza Type A Ag (NEGATIVE) Influenza Type B Ag (NEGATIVE) RSV (PCR) (Negative) - Progress Progress: improved, re-examined Air Movement: good Progress Note: 02/19/18 19:41 cxr-no definite infiltrate; increased bronchiole markings left perihilar region Blood Culture(s) Obtained: Yes Antibiotics given: Yes Counseled pt/family regarding: lab results, diagnosis, need for follow-up, rad results - Departure Time of Disposition: 19:42 Departure Disposition: Home Clinical Impression: Bronchitis Condition: Stable Critical Care Time: No Referrals: GRACE GARCIA MD [Primary Care Provider] - Additional Instructions: drink plenty of fluids. follow up with primary doctor for persistent symptoms Prescriptions: Azithromycin 250 mg [Zithromax 250 MG TABLET] 250 mg PO ZPACK #6 tablet Hydrocodone Bit/Acetaminophen [Hydrocodone-Acetaminophen Soln] 10 ml PO Q6H # 120 ml Prednisone 10 mg [Deltasone 10 mg] 10 mg PO TID #12 tablet
[2018-02-19] MEDS ORDERED: solu-MEDROL 125 MG IV ONE (17:12)
[2018-02-19] MEDS ORDERED: DUONEB 0.5-3 MG/3 ml Neb IH ONE ×2 (17:12→17:18)
[2018-02-19] MEDS ORDERED: ROCEPHIN 1 Gm-D5w 50 ml Bag** 1 G/50 ML IVPB IV STA (17:12)
[2018-02-19] MEDS ORDERED: solu-MEDROL 125 MG ONE (17:17)
[2018-02-19] MEDS ORDERED: ROCEPHIN 1 Gm-D5w 50 ml Bag** 1 G/50 ML IVPB IV ONE (17:17)
[2018-02-19 18:03] LABS: BASOPHIL % 0.6 % (0.0-0.4); Basophil (Absolute #) 0.05 (0-0.4); Eosinophil % 2.3 % (0.00-5.0); Granulocytes % 66.4 % (36.0-66.0); Hematocrit 31.7 % (35-47); Hemoglobin 10.2 gm/dl (12.0-16.0); Lymphocytes % 17.4 % (24.0-44.0); Mean Cell Volume 96.4 fl (78-100); Mean Corpuscular Hgb Concent. 32.2 g/dl (32-36); Mean Platelet Volume 10.1 fl (6-9.5); Monocyte (Absolute #) 1.15 (0.0-1.3); Monocytes % 13.3 % (0.0-12.0); Platelet Count 328 K/mm3 (150-450); Red Blood Count 3.29 M/mm3 (4.1-5.4); Red Cell Distribution Width 12.6 % (11.5-14.0); White Blood Count 8.6 K/mm3 (4.0-10.5)
[2018-02-19 18:33] LABS: BILIRUBIN,TOTAL 0.4 mg/dL (0.2-1.3); Calcium 9.6 mg/dL (8.4-10.2); Creatinine 1 1.41 mg/dL (0.52-1.04); Total Protein 7.3 g/dL (6.3-8.2)
[2018-02-19 19:07] LABS: INFLUENZA A NEGATIVE (NEGATIVE); INFLUENZA B NEGATIVE (NEGATIVE); RESPIRATORY SYNCTIAL VIRUS NEGATIVE (Negative)
[2018-02-19] MEDS ORDERED: HYDROCODONE-ACETAMIN 2.5-108/5 ML SOLUTION PO STA (19:36)
[2018-02-19] MEDS ORDERED: HYDROCODONE-ACETAMIN 2.5-108/5 ML SOLUTION ONE (19:40)
[2018-02-19 19:53] VITALS: O2SAT 96
[2018-02-19 20:04] VITALS: BP 150/86; PULSE 92
--- NOTE | 2018-02-20 08:54 | XRAY ---
Indication: Cough and fever. COPD. Comparison: March 29, 2017. Portable chest demonstrates new left midlung infiltrate versus atelectasis. Remaining lungs clear. Heart is not enlarged for AP portable technique. Bony thorax intact again with mild degenerative changes and lower cervical fusion. Impression: New left midlung infiltrate versus atelectasis. Correlated clinically.
== END 2018-02-19 20:05 | disposition home or self-care (01) ==
LOC: ED 16:32
DX: J40 Bronchitis, not specified as acute or chronic (principal); R05 Cough; J44.9 Chronic obstructive pulmonary disease, unspecified; R50.9 Fever, unspecified; Z79.899 Other long term (current) drug therapy; I10 Essential (primary) hypertension; E78.00 Pure hypercholesterolemia, unspecified; E11.9 Type 2 diabetes mellitus without complications
CPT/HCPCS: 36000; 36415; 71045; 80053; 83605; 83880; 85025; 87631; 94150; 94640; 96365; 96374; 99284; J0696; J2930; A9270-GY

== ENCOUNTER 2020-10-02 13:34 | Emergency (ER) | payer MEDICARE ==
--- NOTE | 2020-10-02 13:41 | ERPHSYRPT ---
- History of Present Illness Time Seen by Provider: 10/02/20 13:41 Historian: patient, family Exam Limitations: no limitations Physician History: This is a 80-year-old white female who is a patient of Dr. Garcia, Dr. Holland (cardiology), Dr. Morel (nephrology) and presents with chest pain. The chest pain has been present for several days intermittently. This morning, patient was on her way into the hospital to obtain some blood work. Patient has a history of chronic atrial fibrillation. Patient is on Coumadin. She also has a history of insulin-dependent diabetes, anemia, elevated cholesterol and hypothyroidism. Timing/Duration: today Quality: aching Location: substernal Chest Pain Radiation: no radiation Severity of Pain-Max: mild (To moderate) Severity of Pain-Current: none Modifying Factors: Improves With: rest (Relieves the pain) Associated Symptoms: shortness of breath (Mild), weakness, No nausea, No vomiting, No chills, No fever, No syncope Prior Chest Pain/Cardiac Workup: heart attack Nitro Today/Relief: no nitro taken today Aspirin Treatment Today: no aspirin today (Patient on Coumadin) Allergies/Adverse Reactions: Penicillins Allergy (Verified 10/02/20 13:53) Itching rash Sulfa (Sulfonamide Antibiotics) [Sulfa(Sulfonamide Antibiotics)] Allergy (Verified 10/02/20 13:53) Itching rash Home Medications: Metoprolol Succinate 100 mg [Toprol Xl 100 MG] 50 mg PO BID 10/03/11 [History] Glimepiride 2 mg [Amaryl 2 MG] 2 mg PO BIDWM 10/04/11 [History] Lovastatin 40 mg PO HS 10/04/11 [History] Ergocalciferol (Vitamin D2) [Vitamin D2] 5,000 unit PO MOWEFR 02/28/17 [History] Gabapentin 400 mg [Neurontin 400 MG] 400 mg PO BID 02/28/17 [History] Insulin Detemir [Levemir Flextouch] 30 unit SQ HS 02/28/17 [History] Isosorbide Mononitrate 60 mg [Imdur 60MG] 60 mg PO DAILY 02/28/17 [History] Metformin HCl 1,000 mg PO BIDWM 02/28/17 [History] Alendronate Sodium 70 mg [Fosamax 70 MG] 70 mg PO WEEKLY 11/22/19 [History] Glimepiride 2 mg [Amaryl 2 MG] 2 mg PO BID 11/22/19 [History] Insulin Lispro Protamin/Lispro [Humalog Mix 75-25 Vial] 10 unit SQ UD PRN 11/22/19 [History] Amiodarone HCl 200 mg PO DAILY 08/28/20 [History] Aspirin EC 81 mg [Ecotrin 81 mg] 81 mg PO DAILY 08/28/20 [History] Cephalexin Mh 500 mg [Keflex 500 mg] 500 mg PO TID 08/28/20 [History] Dapagliflozin Propanediol [Farxiga] 10 mg PO DAILY 08/28/20 [History] Ferrous Sulfate, Dried [Iron] 65 mg PO DAILY 08/28/20 [History] Folic Acid 1 mg [Folate 1 mg] 1 mg PO DAILY 08/28/20 [History] Furosemide 40 mg [Lasix 40 MG] 40 mg PO BID 08/28/20 [History] Glycopyrrolate/Formoterol Fum [Bevespi Aerosphere Inhaler] 10.7 gm IH BID 08/28/20 [History] Isosorbide Mononitrate 60 mg [Imdur 60MG] 60 mg PO DAILY 08/28/20 [History] Levothyroxine Sodium 25 Mcg [Synthroid 25 Mcg] 25 mcg PO DAILY 08/28/20 [History] Metolazone 2.5 mg [Zaroxolyn 2.5 MG] 2.5 mg PO DAILY 08/28/20 [History] Potassium Chloride 20 Meq [Klor-Con 20 MEQ] 20 meq PO BID 08/28/20 [History] Warfarin Sodium 1 mg [Coumadin 1 MG] 1 mg PO DAILY 08/28/20 [History] Hx Tetanus, Diphtheria Vaccination/Date Given: No (PT UNSURE) Hx Influenza Vaccination/Date Given: Yes Hx Pneumococcal Vaccination/Date Given: Yes Travel Risk - International Travel Have you traveled outside of the country in past 3 weeks: No - Coronavirus Screening Are you exhibiting any of the following symptoms?: No Close contact with a COVID-19 positive Pt in past 14-21 Days: No - Review of Systems Constitutional: Weakness Eyes: No Symptoms Ears, Nose, & Throat: No Symptoms Respiratory: No Symptoms Cardiac: Chest Pain Abdominal/Gastrointestinal: No Symptoms Genitourinary Symptoms: No Symptoms Musculoskeletal: No Symptoms Skin: No Symptoms Neurological: No Symptoms Psychological: No Symptoms Endocrine: No Symptoms Hematologic/Lymphatic: No Symptoms Immunological/Allergic: No Symptoms All Other Systems: Reviewed and Negative - Past Medical History Pertinent Past Medical History: Yes Neurological History: No Pertinent History ENT History: Cataracts Cardiac History: Angina, Deep Vein Thrombosis, High Cholesterol, Hypertension Respiratory History: No Pertinent History Endocrine Medical History: Diabetes Type II Musculoskeletal History: Arthritis, Fractures GI Medical History: Gallbladder Disease History: No Pertinent History Psycho-Social History: Anxiety Female Reproductive Disorders: Cervical Cancer, Other Other Medical History: past hx hysterectomy in the ' - Past Surgical History Past Surgical History: Yes Neuro Surgical History: No Pertinent History Cardiac: CABG, Cardiac Catheterization, Cardiac Stent Respiratory: No Pertinent History Gastrointestinal: Cholecystectomy Genitourinary: No Pertinent History Musculoskeletal: Orthopedic Surgery Female Surgical History: Hysterectomy Other Surgical History: ANKLE, KNEE, SHOULDER SURGERY, cataract surgery both ey es, states "cracked a rib pulling laundry out,dialysis 5 times during hospitalization none at this time, triple bypass valve replacement and stent placed,colonoscopy - Social History Smoking Status: Never smoker Exposure to second hand smoke: No Drug Use: none Patient Lives Alone: No Significant Family History: no pertinent family hx - Nursing Vital Signs Nursing Vital Signs: Initial Vital Signs Temperature 98.0 F 10/02/20 13:53 Pulse Rate 136 H 10/02/20 13:53 Respiratory Rate 20 10/02/20 13:53 Blood Pressure 115/84 10/02/20 13:53 O2 Sat by Pulse Oximetry 95 10/02/20 13:53 Pain Scale Pain Intensity 0 - Physical Exam General Appearance: mild distress, alert, anxiety Eye Exam: PERRL/EOMI, eyes nml inspection Ears, Nose, Throat Exam: normal ENT inspection, moist mucous membranes Neck Exam: normal inspection, non-tender, supple, full range of motion Respiratory Exam: normal breath sounds, chest tenderness, lungs clear, airway intact, No respiratory distress Cardiovascular Exam: tachycardia Gastrointestinal/Abdomen Exam: soft, normal bowel sounds, No tenderness Pelvic Exam: not done Rectal Exam: not done Back Exam: normal inspection, normal range of motion, No CVA tenderness, No vertebral tenderness Extremity Exam: normal inspection, normal range of motion, pelvis stable Neurologic Exam: alert, oriented x 3, cooperative, job spotter II-XII nml as tested, normal mood/affect, nml cerebellar function, nml station & gait, sensation nml Skin Exam: normal color, warm, dry Lymphatic Exam: No adenopathy SpO2 Interpretation: normal O2 Delivery: Room Air - Course Nursing assessment & vital signs reviewed: Yes EKG Interpreted by Me: RATE (130), A-fib, LAFB, prolonged QT interval, Other (When compared to EKG dated 04/05/2018, there is persistent left anterior fascicular block. There is new atrial fibrillation and new prolonged QT inte rval as well as anterior Q waves. The ST elevation and ST depression that was present on 04/05/2018 has resolved.) Ordered Tests: Active Orders 24 hr Category Date Time Status Director Of Accounts Payable STAT Care 10/02/20 13:45 Active EKG-ER Only STAT Care 10/02/20 13:45 Active IV Insertion STAT Care 10/02/20 13:45 Active CHEST 1 VIEW (PORTABLE) Stat Exams 10/02/20 13:45 Completed CBC W DIFF Stat Lab 10/02/20 13:50 Completed CMP Stat Lab 10/02/20 13:50 Completed NT PRO BNP Stat Lab 10/02/20 13:50 Completed PROTIME WITH INR Stat Lab 10/02/20 13:50 Completed T4 (Thyroxine) Stat Lab 10/02/20 13:50 Completed TROPONIN Q3H Lab 10/02/20 13:50 Completed TROPONIN Q3H Lab 10/02/20 16:51 Completed TROPONIN Q3H Lab 10/02/20 19:45 Ordered TROPONIN Q3H Lab 10/02/20 22:45 Ordered TROPONIN Q3H Lab 10/03/20 01:45 Ordered TSH, 3RD Generation Stat Lab 10/02/20 13:50 Completed Medication Summary Generic Name Dose Route Start Last Admin Trade Name Freq PRN Reason Stop Dose Admin Sodium Chloride 1,000 mls @ 50 mls/hr 10/02/20 13:45 10/02/20 14:12 Sodium Chloride 0.9% 1000 Ml IV 11/01/20 13:44 50 mls/hr .Q20H PERFECTO Administration Discontinued Medications Generic Name Dose Route Start Last Admin Trade Name Nanci PRN Reason Stop Dose Admin Acetaminophen 650 mg 10/02/20 16:44 10/02/20 16:50 Tylenol 325 Mg PO 10/02/20 16:45 Not Given STAT STA Aspirin 324 mg 10/02/20 13:45 10/02/20 14:12 Baby Aspirin 81 Mg Chew PO 10/02/20 13:46 324 mg STAT ONE Administration Aspirin Confirm 10/02/20 14:06 Baby Aspirin 81 Mg Chew Administered 10/02/20 14:07 Dose 324 mg .ROUTE .STK-MED ONE Furosemide 40 mg 10/02/20 17:37 Lasix 40 Mg/4 Ml IV 10/02/20 17:38 STAT ONE Metoprolol Tartrate 5 mg 10/02/20 13:45 10/02/20 14:12 Lopressor 5 Mg/5 Ml Injection IV 10/02/20 13:46 Not Given STAT ONE Metoprolol Tartrate Confirm 10/02/20 14:06 Lopressor 5 Mg/5 Ml Injection Administered 10/02/20 14:07 Dose 5 mg IV .STK-MED ONE Potassium Chloride 10 meq 10/02/20 17:36 Klor Con 10 Meq PO 10/02/20 17:37 STAT ONE Lab/Rad Data: Laboratory Result Diagrams 10/02/20 13:50 10/02/20 13:50 Laboratory Results 10/02/20 10/02/20 10/02/20 Range/Units 16:51 13:50 13:50 WBC (4.0-10.5) K/mm3 RBC (4.1-5.4) M/mm3 Hgb (12.0-16.0) gm/dl Hct (35-47) % MCV (78-100) fl MCH (26-32) pg MCHC (32-36) g/dl RDW (11.5-14.0) % Plt Count (150-450) K/mm3 MPV (7.5-11.0) fl Gran % (36.0-66.0) % Eos # (Auto) (0-0.5) Absolute Lymphs (auto) (1.0-4.6) Absolute Monos (auto) (0.0-1.3) Lymphocytes % (24.0-44.0) % Monocytes % (0.0-12.0) % Eosinophils % (0.00-5.0) % Basophils % (0.0-0.4) % Absolute Granulocytes (1.4-6.9) Basophils # (0-0.4) PT 25.3 H (9.4-12.5) SECONDS INR 2.14 (0.8-3.0) Sodium 135 L (137-145) mmol/L Potassium 3.3 L (3.5-5.1) mmol/L Chloride 92 L (98-107) mmol/L Carbon Dioxide 28 (22-30) mmol/L Anion Gap 17.9 H (5-15) MEQ/L BUN 80 H (7-17) mg/dL Creatinine 3.04 H (0.52-1.04) mg/dL Estimated GFR 15.8 ML/MIN Glucose 255 H (74-106) mg/dL Calcium 9.0 (8.4-10.2) mg/dL Total Bilirubin 0.40 (0.2-1.3) mg/dL AST 29 (14-36) U/L ALT 15 (0-35) U/L Alkaline Phosphatase 91 (38-126) U/L Troponin I 0.119 H* (0.000-0.034) ng/mL NT-Pro-B Natriuret Pep 17817 H (0-1800) pg/mL Serum Total Protein 7.7 (6.3-8.2) g/dL Albumin 4.2 (3.5-5.0) g/dL Thyroxine (T4) 7.51 (5.53-10.96) ug/dL TSH 3rd Generation 7.120 H (0.47-4.68) mIU/L 10/02/20 10/02/20 Range/Units 13:50 13:50 WBC 7.0 (4.0-10.5) K/mm3 RBC 3.47 L (4.1-5.4) M/mm3 Hgb 10.8 L (12.0-16.0) gm/dl Hct 34.3 L (35-47) % MCV 98.8 (78-100) fl MCH 31.1 (26-32) pg MCHC 31.5 L (32-36) g/dl RDW 14.8 H (11.5-14.0) % Plt Count 313 (150-450) K/mm3 MPV 10.0 (7.5-11.0) fl Gran % 69.8 H (36.0-66.0) % Eos # (Auto) 0.54 H (0-0.5) Absolute Lymphs (auto) 0.71 L (1.0-4.6) Absolute Monos (auto) 0.85 (0.0-1.3) Lymphocytes % 10.1 L (24.0-44.0) % Monocytes % 12.1 H (0.0-12.0) % Eosinophils % 7.7 H (0.00-5.0) % Basophils % 0.3 (0.0-0.4) % Absolute Granulocytes 4.88 (1.4-6.9) Basophils # 0.02 (0-0.4) PT (9.4-12.5) SECONDS INR (0.8-3.0) Sodium (137-145) mmol/L Potassium (3.5-5.1) mmol/L Chloride (98-107) mmol/L Carbon Dioxide (22-30) mmol/L Anion Gap (5-15) MEQ/L BUN (7-17) mg/dL Creatinine (0.52-1.04) mg/dL Estimated GFR ML/MIN Glucose (74-106) mg/dL Calcium (8.4-10.2) mg/dL Total Bilirubin (0.2-1.3) mg/dL AST (14-36) U/L ALT (0-35) U/L Alkaline Phosphatase (38-126) U/L Troponin I 0.130 H* (0.000-0.034) ng/mL NT-Pro-B Natriuret Pep (0-1800) pg/mL Serum Total Protein (6.3-8.2) g/dL Albumin (3.5-5.0) g/dL Thyroxine (T4) (5.53-10.96) ug/dL TSH 3rd Generation (0.47-4.68) mIU/L - Progress Progress: improved, re-examined Air Movement: good Progress Note: 10/02/20 16:40 Chest x-ray no acute cardiopulmonary process. 10/02/20 16:42 Medical decision making: This patient has chest pain with exertion activity. She has had this for several days. She has a history of atrial fibrillation. However her rate was rapid today and she has had some shortness of breath and recurrence of her chest pain with ambulation in the hospital. Her troponin is elevated. This may be secondary to her elevated BUN and creatinine. However, she does have a significant cardiac history. She sees Dr. Holland as her health program director as well as Dr. Morel her pipe turner. Originally, the family wanted to have the patient evaluated at [facility]. However they do not have any beds available at this time. They prefer [facility] now to transfer to. The patient currently has no chest pain while she is lying still. 10/02/20 18:[address] Jenkins at [facility] emergency department. I reviewed the patient history, physical findings, EKG results, results of radiographic and laboratory studies. He agrees to accept the patient in transfer. Blood Culture(s) Obtained: No Antibiotics given: No Counseled pt/family regarding: lab results, diagnosis, rad results - Departure Departure Disposition: Transfer Clinical Impression: Atrial fibrillation with RVR, Renal insufficiency, Non-STEMI (non-ST elevated myocardial infarction), Hypokalemia, CHF (congestive heart failure) Condition: Fair Critical Care Time: Yes Critical Care Time(excluding separately billable procedures): Critical 30-74 mins Referrals: GRACE GARCIA MD [Primary Care Provider] - Instructions: Heart Failure
[2020-10-02] MEDS ORDERED: Sodium Chloride 0.9% 1000 ML 1,000 ML IV SCH (13:45)
[2020-10-02] MEDS ORDERED: BABY ASPIRIN 81 MG CHEW PO ONE (13:45)
[2020-10-02] MEDS ORDERED: LOPRESSOR 5 MG/5 ML INJECTION IV ONE ×2 (13:45→14:06)
[2020-10-02 13:59] LABS: Absolute Neutrophil Ct (ANC) 4.88 (1.4-6.9); BASOPHIL % 0.3 % (0.0-0.4); Basophil (Absolute #) 0.02 (0-0.4); Eosinophil % 7.7 % (0.00-5.0); Eosinophil (Absolute #) 0.54 (0-0.5); Hematocrit 34.3 % (35-47); Hemoglobin 10.8 gm/dl (12.0-16.0); Lymphocyte (Absolute #) 0.71 (1.0-4.6); Lymphocytes % 10.1 % (24.0-44.0); Mean Cell Volume 98.8 fl (78-100); Mean Corpuscular Hemoglobin 31.1 pg (26-32); Mean Corpuscular Hgb Concent. 31.5 g/dl (32-36); Monocyte (Absolute #) 0.85 (0.0-1.3); Monocytes % 12.1 % (0.0-12.0); Neutrophil % 69.8 % (36.0-66.0); Platelet Count 313 K/mm3 (150-450); Red Blood Count 3.47 M/mm3 (4.1-5.4); Red Cell Distribution Width 14.8 % (11.5-14.0)
[2020-10-02] MEDS ORDERED: BABY ASPIRIN 81 MG CHEW ONE (14:06)
[2020-10-02] MEDS ORDERED: Sodium Chloride 0.9% 1000 ML 1,000 ML ONE (14:06)
[2020-10-02 14:08] LABS: INR 2.14 (0.8-3.0); PROTIME 25.3 SECONDS (9.4-12.5)
--- NOTE | 2020-10-02 14:12 | XRAY ---
Indication: Difficulty breathing. Comparison: August 30, 2018. Portable apical lordotic chest less inflated and remains clear. Heart not enlarged with interval CABG surgery. Bony thorax intact again with mild osteopenia and degenerative changes. Impression: Continued nonacute chest with chronic features.
[2020-10-02 14:43] LABS: ALBUMIN 4.2 g/dL (3.5-5.0); ANION GAP 17.9 MEQ/L (5-15); BILIRUBIN,TOTAL 0.4 mg/dL (0.2-1.3); Creatinine 1 3.04 mg/dL (0.52-1.04); EST GLOMERULAR FILTRATION RATE 15.8 ML/MIN; Potassium 3.3 mmol/L (3.5-5.1); T4 (Thyroxine) 7.51 ug/dL (5.53-10.96); TSH, 3RD Generation 7.12 mIU/L (0.47-4.68); Total Protein 7.7 g/dL (6.3-8.2)
[2020-10-02] MEDS ORDERED: TYLENOL 325 MG PO STA (16:44)
[2020-10-02] MEDS ORDERED: Klor Con 10 MEQ PO ONE ×2 (17:36→18:26)
[2020-10-02] MEDS ORDERED: Lasix 40 MG/4 ML IV ONE (17:37)
[2020-10-02 18:33] VITALS: O2SAT 97
[2020-10-02 19:05] VITALS: BP 100/49; PULSE 107
== END 2020-10-02 17:35 | disposition home or self-care (01) ==
LOC: ED 13:34
DX: I48.91 Unspecified atrial fibrillation (principal); N28.9 Disorder of kidney and ureter, unspecified; I21.3 ST elevation (STEMI) myocardial infarction of unspecified site; I21.4 Non-ST elevation (NSTEMI) myocardial infarction; E87.6 Hypokalemia; I50.9 Heart failure, unspecified; Z79.01 Long term (current) use of anticoagulants; E11.9 Type 2 diabetes mellitus without complications; Z79.4 Long term (current) use of insulin; E03.9 Hypothyroidism, unspecified; E78.00 Pure hypercholesterolemia, unspecified; Z79.899 Other long term (current) drug therapy; Z86.718 Personal history of other venous thrombosis and embolism; I10 Essential (primary) hypertension; Z85.41 Personal history of malignant neoplasm of cervix uteri; F41.9 Anxiety disorder, unspecified
CPT/HCPCS: 36415; 71045; 80053; 82947; 83880; 84436; 84443; 84484; 85025; 85610; 93005; 93041; 96360; 96361; 99285; 99291; A9270-GY

== ENCOUNTER 2021-12-03 09:21 | Emergency (ER) | payer MEDICARE ==
--- NOTE | 2021-12-03 09:52 | XRAY ---
Indication: Laceration. Status post fall. Multiple contiguous axial images obtained through the head without contrast. Comparison: None Age-appropriate global atrophy, minimal periventricular degenerative micro-ischemia bilaterally, and tiny remote lacunar infarct right external capsule. No acute intracranial hemorrhage, abnormal extra-axial fluid collection, or mass effect. Fourth ventricle is midline without hydrocephalus. Moderate right frontal scalp hematoma/laceration. Bony calvarium intact. Mild mucosal thickening both ethmoid, right maxillary, and left sphenoid sinuses without fluid leveling. Partial opacification right mastoid air cells presumed inflammatory. Impression: 1. Frontal scalp hematoma/laceration. No underlying fracture or acute intracranial abnormalities. 2. Atrophy and degenerative micro-ischemia within normal limits for patient's age. Incidental remote lacunar infarct right external capsule. 3. Incidental paranasal sinus disease and opacification right mastoid air cells presumed inflammatory.
--- NOTE | 2021-12-03 10:00 | XRAY ---
Indication: Head injury following fall. Multiple contiguous axial images obtained through the cervical spine. Sagittal and coronal reformatted images obtained. Comparison: None Osseous structures demineralized consistent with patient's age. Axial images demonstrates fracture involving the right posterior arc of C1 without spinal canal encroachment. Coronal images demonstrates slight comminuted appearance and minimal displacement. No other acute fracture or suspicious bony lesions. Moderate atlantoaxial and C6-C7 degenerative changes. Previous C3-C5 fusion with intact anterior/posterior fusion hardware, intervertebral spacers, and posterior bone grafts. Sagittal and coronal reformatted images demonstrates normal alignment with C6-7 C7 disc space loss. No acute compression fracture, subluxation, or jumped facet. Visualized noncontrasted soft tissues demonstrates right lobe thyroidectomy and mild scattered vascular calcifications. Impression: 1. Minimally displaced fracture posterior arch C1 as detailed. 2. C3-C5 fusion surgery with intact hardware. 3. Osteopenia and C1-C2/C6-C7 degenerative changes. Comment: Telephone report will be given to the ordering clinician.
[2021-12-03 10:17] LABS: INR 3.43 (0.8-3.0); PROTIME 32.5 SECONDS (9.4-12.5); PTT 64.1 SECONDS (25.1-36.5)
--- NOTE | 2021-12-03 11:06 | ERPHSYRPT ---
- History of Present Illness Time Seen by Provider: 12/03/21 09:26 Source: patient, EMS Exam Limitations: no limitations Patient Subjective Stated Complaint: PT states "I have not been feeling well so I have been sleeping in a chair and this morning I fell out of my chair and hit my head" Triage Nursing Assessment: PT presented alert and oriented X 3, skin pwd. Pt able to speak in clear full sentences. PT in no apparent respiratory distress. pt resting comfortably on the bed. Pt has laceration noted to forehead. Physician History: 81 years old female with history of coronary artery disease status post CABG, diabetes mellitus, hypertension, hyperlipidemia, end-stage renal disease on dialysis due for dialysis this afternoon, previous neck surgery at [facility] presented in the ER with chief complaint of headache and forehead laceration. Patient reports she could not sleep last night, was sitting on recliner, fell asleep and fell on the side and hit her head against the wooden arm of another recliner. Denies any numbness tingling or focal weakness. No difficulty movements of eyeballs. No difficulty speech. Denies any chest pain but does have some shortness of breath which is going on for quite some time and gets usually worse after couple of days of dialysis. Denies injury anywhere else. Reports being up-to-date with tetanus. Occurred: just prior to arrival Injuries/Pain Location: head, face Quality: sharpness Severity of Pain-Max: mild Severity of Pain-Current: mild Modifying Factors: Improves With: nothing Associated Symptoms (Fall): headache, shortness of breath, No neck pain Allergies/Adverse Reactions: Penicillins Allergy (Verified 10/02/20 13:53) Itching rash Sulfa (Sulfonamide Antibiotics) [Sulfa(Sulfonamide Antibiotics)] Allergy (Verified 10/02/20 13:53) Itching rash Home Medications: Lovastatin 20 mg PO HS 10/04/11 [History] Ergocalciferol (Vitamin D2) [Vitamin D2] 50,000 unit PO WEEKLY 02/28/17 [History] Gabapentin [Neurontin ] 300 mg PO QHS 02/28/17 [History] Insulin Detemir [Levemir Flextouch] 30 unit SQ HS 02/28/17 [History] Alendronate Sodium 70 mg [Fosamax 70 MG] 35 mg PO WEEKLY 11/22/19 [History] Insulin Lispro Protamin/Lispro [Humalog Mix 75-25 Vial] 12 unit SQ UD PRN 11/22/19 [History] Amiodarone HCl 100 mg PO DAILY 08/28/20 [History] Aspirin EC 81 mg [Ecotrin 81 mg] 81 mg PO DAILY 08/28/20 [History] Folic Acid 1 mg [Folate 1 mg] 1 mg PO DAILY 08/28/20 [History] Isosorbide Mononitrate 60 mg [Imdur 60MG] 60 mg PO DAILY 08/28/20 [History] Levothyroxine Sodium 25 Mcg [Synthroid 25 Mcg] 50 mcg PO DAILY 08/28/20 [History] Warfarin Sodium 1 mg [Coumadin 1 MG] 1 mg PO DAILY 08/28/20 [History] Allopurinol 100 mg [Zyloprim 100 mg] 100 mg PO BID 12/16/20 [History] Midodrine HCl [Proamatine] 15 mg PO TID 12/16/20 [History] Nitroglycerin [Nitromist] 0.4 mg SL Q5MIN PRN MR X 3 PRN 12/16/20 [History] Sevelamer Carbonate 800 mg PO TIDWM 04/29/21 [History] Albuterol Common Canister [Ventolin Common Canister] 2 puff IH Q4HPRN PRN 05/31/21 [History] Furosemide 20 mg [Lasix 20 mg] 40 mg PO DAILY 05/31/21 [History] Metoprolol Succinate 25 mg PO DAILY 08/31/21 [History] Pen Needle, Diabetic [Bd Ultra-Fine Pen Needle] 08/31/21 [History] Hx Tetanus, Diphtheria Vaccination/Date Given: No (PT UNSURE) Hx Influenza Vaccination/Date Given: Yes Hx Pneumococcal Vaccination/Date Given: Yes Immunizations Up to Date: Yes Travel Risk - International Travel Have you traveled outside of the country in past 3 weeks: No - Coronavirus Screening Are you exhibiting any of the following symptoms?: No Close contact with a COVID-19 positive Pt in past 14-21 Days: No - Vaccine Status Have you recieved a Covid-19 vaccination: Yes Cloth Booker: Moderna - Vaccination Dates Date of 2cond Vaccination (if applicable): May 2020 - Review of Systems Constitutional: No Symptoms Eyes: No Symptoms Ears, Nose, & Throat: No Symptoms Respiratory: No Symptoms Cardiac: No Symptoms Abdominal/Gastrointestinal: No Symptoms Genitourinary Symptoms: No Symptoms Musculoskeletal: Injury Neurological: Headache Psychological: No Symptoms Endocrine: No Symptoms Hematologic/Lymphatic: Easy Bleeding Immunological/Allergic: No Symptoms - Past Medical History Pertinent Past Medical History: Yes Neurological History: Peripheral Neuropathy, TIA ENT History: Cataracts Cardiac History: Other Respiratory History: COPD Endocrine Medical History: Adrenal Insufficiency, Diabetes Type II, Hypothyroidism Musculoskeletal History: Osteoarthritis GI Medical History: Gallbladder Disease History: No Pertinent History Psycho-Social History: Anxiety Female Reproductive Disorders: Cervical Cancer, Other Other Medical History: PT NOTES WHEN SHE GETS TIRED SHE DRAGS HER L FOOT. THYROID SURGERY 4-5 YEARS AGO. OPEN HEART SURGERY 06/30/20 WITH CABG X3 , HAD VALVE REPLACED AND A STINT REPLACED. PT HAS DIALYSIS 2X/WEEK AT [place]. - Past Surgical History Past Surgical History: Yes Neuro Surgical History: No Pertinent History Cardiac: CABG, Cardiac Catheterization, Cardiac Stent Respiratory: No Pertinent History Gastrointestinal: Cholecystectomy Genitourinary: No Pertinent History Musculoskeletal: Orthopedic Surgery Female Surgical History: Hysterectomy Other Surgical History: ANKLE, KNEE, SHOULDER SURGERY, cataract surgery both eyes, states "cracked a rib pulling laundry out,dialysis 5 times during hospitalization none at this time, triple bypass valve replacement and stent placed,colonoscopy - Social History Smoking Status: Never smoker Exposure to second hand smoke: No Drug Use: none Patient Lives Alone: Yes Significant Family History: no pertinent family hx - Nursing Vital Signs Nursing Vital Signs: Initial Vital Signs Temperature 97.1 F 12/03/21 09:23 Pulse Rate 78 12/03/21 09:23 Respiratory Rate 20 12/03/21 09:23 Blood Pressure 152/64 12/03/21 09:23 O2 Sat by Pulse Oximetry 95 12/03/21 09:23 Pain Scale Pain Intensity 5 - Nkechi Coma Score Best Eye Response (Nkechi): (4) open spontaneously Best Verbal Response (Carlos): (5) oriented Best Motor Response (Carlos): (6) obeys commands Nkechi Total: 15 - Physical Exam General Appearance: no apparent distress, alert Head Injury: contusions, lacerations (6.5 cm forehead linear laceration with slow oozing. No active spurting. 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 manager/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 II-XII nml as tested, normal mood/affect, sensation nml, No motor deficits Skin Exam: normal color SpO2 Interpretation: normal SpO2: 95 O2 Delivery: Room Air Procedures - Laceration/Wound Repair Frontal Time of Procedure: 11:22 Wound Location: forehead Wound Length (cm): 6.5 Wound's Depth, Shape: into muscle, linear Wound Explored: clean Irrigated: Yes Hibiclens Prep: Yes Anesthesia: 1% Lidocaine Volume Anesthetic (ccs): 4 Wound Repaired With: sutures Suture Size/Type: 5-0, prolene Number of Sutures: 11 Layer Closure?: No Sterile Dressing Applied?: Yes Splint Applied?: No Ordered Tests: Active Orders 24 hr Category Date Time Status CERVICAL SPINE WO CONTRAST [CT] Stat Exams 12/03/21 09:36 Completed CHEST 1 VIEW (PORTABLE) Stat Exams 12/03/21 09:26 Taken HEAD WITHOUT CONTRAST [CT] Stat Exams 12/03/21 09:26 Completed CBC W DIFF Stat Lab 12/03/21 12:14 Ordered CMP Stat Lab 12/03/21 12:14 Ordered PT INR [PROTIME WITH INR] Stat Lab 12/03/21 09:50 Completed PTT Stat Lab 12/03/21 09:50 Completed Lab/Rad Data: Laboratory Results 12/03/21 Range/Units 09:50 PT 32.5 H (9.4-12.5) SECONDS INR 3.43 H (0.8-3.0) APTT 64.1 H (25.1-36.5) SECONDS - Progress Progress: improved Progress Note: 12/03/21 12:23 81 years old is evaluated for fall with injury to the forehead. She has intact/nonfocal neuro exam. Forehead laceration is repaired. CT head negative for any acute intracranial findings. CT cervical spine showed minimally displaced right posterior arch of C1. No weakness in upper extremities or limitation range of motion. C-collar is in place. Discussed with [facility] who have discussed with their neurosurgery and recommended transfer to [facility]. Patient is auto excepted on behalf of Dr. Newsome at [facility] ER. Chest x-ray no acute findings. INR 3.4. It was a kind of mechanical fall, do not think needs further work-up, will obtain baseline labs while patient is in here. Plan discussed with patient and family who understand and agree with it. Discussed with : Other Will see patient in: ED Counseled pt/family regarding: lab results, diagnosis, need for follow-up, rad results - Departure Departure Disposition: Transfer Clinical Impression: C1 cervical fracture, Forehead laceration, Fall Condition: Stable Critical Care Time: No Referrals: GRACE GARCIA MD [Primary Care Provider] - Follow up/PCP as directed
[2021-12-03 12:13] VITALS: BP 150/60; PULSE 102
[2021-12-03 12:20] LABS: Absolute Neutrophil Ct (ANC) 10.85 x10^3/uL (1.4-6.9); Basophil (Absolute #) 0.09 x10^3/uL (0-0.4); Eosinophil % 1.6 % (0.00-5.0); Eosinophil (Absolute #) 0.22 x10^3/uL (0-0.5); Hematocrit 29.8 % (35-47); Hemoglobin 9.2 g/dL (12.0-16.0); Lymphocyte (Absolute #) 1.07 x10^3/uL (1.0-4.6); Lymphocytes % 7.7 % (24.0-44.0); Mean Cell Volume 102.8 fL (78-100); Mean Corpuscular Hemoglobin 31.7 pg (26-32); Mean Corpuscular Hgb Concent. 30.9 g/dL (32-36); Mean Platelet Volume 9.9 fL (7.5-11.0); Monocyte (Absolute #) 1.66 x10^3/uL (0.0-1.3); Monocytes % 11.9 % (0.0-12.0); Neutrophil % 77.6 % (36.0-66.0); Platelet Count 255 x10^3/uL (150-450)
[2021-12-03 12:23] VITALS: O2SAT 95
[2021-12-03 12:26] LABS: ALBUMIN 3.7 g/dL (3.5-5.0); ANION GAP 9.1 MEQ/L (5-15); BILIRUBIN,TOTAL 0.8 mg/dL (0.2-1.3); Calcium 8.3 mg/dL (8.4-10.2); Creatinine 1 2.89 mg/dL (0.52-1.04); EST GLOMERULAR FILTRATION RATE 16.7 ML/MIN; Potassium 3.9 mmol/L (3.5-5.1); Total Protein 6.5 g/dL (6.3-8.2)
[2021-12-03 15:08] LABS: Slide Review 1 YES
--- NOTE | 2021-12-06 08:00 | XRAY ---
Indication: Status post fall. Comparison: October 02, 2020 Portable chest demonstrates new mild bibasilar subsegmental atelectasis/scarring. Remaining lungs clear. Heart not enlarged again with CABG. Bony thorax intact with osteopenia, and partially visualized cervical fusion hardware. Impression: Nonacute chest with chronic features.
== END 2021-12-03 13:03 | disposition short-term general hospital (02) ==
LOC: ED 09:21
DX: S12.030A Displaced posterior arch fracture of first cervical vertebra, initial encounter for closed fracture (principal); S01.81XA Laceration without foreign body of other part of head, initial encounter; W07.XXXA Fall from chair, initial encounter; Y93.84 Activity, sleeping; R51.9 Headache, unspecified; I12.0 Hypertensive chronic kidney disease with stage 5 chronic kidney disease or end stage renal disease; E11.22 Type 2 diabetes mellitus with diabetic chronic kidney disease; N18.6 End stage renal disease; E78.5 Hyperlipidemia, unspecified; E11.42 Type 2 diabetes mellitus with diabetic polyneuropathy; J44.9 Chronic obstructive pulmonary disease, unspecified; Z79.4 Long term (current) use of insulin; Z79.01 Long term (current) use of anticoagulants; Z79.899 Other long term (current) drug therapy
CPT/HCPCS: 12002; 36415; 70450; 71045; 72125; 80053; 85025; 85610; 85730; 99283

== ENCOUNTER 2022-03-13 15:09 | Emergency (ER) | payer MEDICARE ==
[2022-03-13] MEDS ORDERED: Sodium Chloride 0.9% 1000 ML 1,000 ML IV STA (15:32)
[2022-03-13] MEDS ORDERED: Sodium Chloride 0.9% 1000 ML 1,000 ML ONE ×2 (15:34→18:29)
--- NOTE | 2022-03-13 15:49 | ERPHSYRPT ---
- History of Present Illness Source: patient, EMS Exam Limitations: no limitations Patient Subjective Stated Complaint: pt reports short fall, was walking to her car on a concrete parking lot when she lost her footing and fell striking her head, then backside on the concrete, pt denies LOC. pt reports pain to the bilat hips and back of the head. Triage Nursing Assessment: pt is aox3, pupils perrl, afebrile, resps easy and non labored, cap refill < 3 seconds, radial pulses strong and equal, pt skin pink warm dry. pt has an approx 2-3 cm laceration to the occiptal region with active bleeding at this time. pt with a large hematoma as well and several blood clots in the hair. pt arrives with C-spine precautions in place. Physician History: 82 yo wf presents s/p fall per [facility] service w large L parietal hematoma. Pt is on Coumadin for Afib. She was dazed but denies LOC. Pt arrived w C-collar in place. She lost her balance in her apartment parking lot walking from her car. Pt bleeding profusely from her scalp lac. Loss of Consciousness: dazed Allergies/Adverse Reactions: Penicillins Allergy (Verified 03/13/22 15:33) Itching rash Sulfa (Sulfonamide Antibiotics) [Sulfa(Sulfonamide Antibiotics)] Allergy (Verified 03/13/22 15:33) Itching rash Home Medications: Lovastatin 20 mg PO HS 10/04/11 [History] Ergocalciferol (Vitamin D2) [Vitamin D2] 50,000 unit PO WEEKLY 02/28/17 [History] Gabapentin [Neurontin ] 300 mg PO QHS 02/28/17 [History] Insulin Detemir [Levemir Flextouch] 30 unit SQ HS 02/28/17 [History] Alendronate Sodium 70 mg [Fosamax 70 MG] 35 mg PO WEEKLY 11/22/19 [History] Insulin Lispro Protamin/Lispro [Humalog Mix 75-25 Vial] 12 unit SQ UD PRN 11/22/19 [History] Amiodarone HCl 100 mg PO DAILY 08/28/20 [History] Aspirin EC 81 mg [Ecotrin 81 mg] 81 mg PO DAILY 08/28/20 [History] Folic Acid 1 mg [Folate 1 mg] 1 mg PO DAILY 08/28/20 [History] Isosorbide Mononitrate 60 mg [Imdur 60MG] 60 mg PO DAILY 08/28/20 [History] Levothyroxine Sodium 25 Mcg [Synthroid 25 Mcg] 50 mcg PO DAILY 08/28/20 [History] Warfarin Sodium 1 mg [Coumadin 1 MG] 1 mg PO DAILY 08/28/20 [History] Allopurinol 100 mg [Zyloprim 100 mg] 100 mg PO BID 12/16/20 [History] Midodrine HCl [Proamatine] 15 mg PO TID 12/16/20 [History] Nitroglycerin [Nitromist] 0.4 mg SL Q5MIN PRN MR X 3 PRN 12/16/20 [History] Sevelamer Carbonate 800 mg PO TIDWM 04/29/21 [History] Albuterol Common Canister [Ventolin Common Canister] 2 puff IH Q4HPRN PRN 05/31/21 [History] Furosemide 20 mg [Lasix 20 mg] 40 mg PO DAILY 05/31/21 [History] Metoprolol Succinate 25 mg PO DAILY 08/31/21 [History] Pen Needle, Diabetic [Bd Ultra-Fine Pen Needle] 08/31/21 [History] Hx Tetanus, Diphtheria Vaccination/Date Given: Yes Hx Influenza Vaccination/Date Given: Yes Hx Pneumococcal Vaccination/Date Given: Yes Immunizations Up to Date: Yes Travel Risk - International Travel Have you traveled outside of the country in past 3 weeks: No - Coronavirus Screening Are you exhibiting any of the following symptoms?: No - Vaccine Status Have you recieved a Covid-19 vaccination: Yes 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 THYROID SURGERY 4-5 YEARS AGO. OPEN HEART SURGERY 06/30/20 WITH CABG X3 , HAD VALVE REPLACED AND A STINT REPLACED. PT HAS DIALYSIS 2X/WEEK AT [place]. - Past Surgical History Past Surgical History: Yes Neuro Surgical History: No Pertinent History Cardiac: CABG, Cardiac Catheterization, Cardiac Stent Respiratory: No Pertinent History Gastrointestinal: Cholecystectomy Genitourinary: No Pertinent History Musculoskeletal: Orthopedic Surgery Female Surgical History: Hysterectomy Other Surgical History: ANKLE, KNEE, SHOULDER SURGERY, cataract surgery both eyes, states "cracked a rib pulling laundry out,dialysis 5 times during hospitalization none at this time, triple bypass valve replacement and stent placed,colonoscopy - Social History Smoking Status: Never smoker Exposure to second hand smoke: No Drug Use: none Patient Lives Alone: Yes Significant Family History: no pertinent family hx - Nursing Vital Signs Nursing Vital Signs: Initial Vital Signs Temperature 98.3 F 03/13/22 15:10 Pulse Rate 90 03/13/22 15:10 Respiratory Rate 16 03/13/22 15:10 Blood Pressure 143/64 03/13/22 15:10 O2 Sat by Pulse Oximetry 96 03/13/22 15:10 Pain Scale Pain Intensity 5 - Physical Exam SpO2: 96 - Course Nursing assessment & vital signs reviewed: Yes - CT Exams Head CT Interpretation: Tele-radiologist Report (Scalp hematoma/No skull fx or intrac ranial bleed) Cervical Spine CT Interpretation: Tele-radiologist Report (Un-united C1 fx(Non-displaced and old)) Chest CT Interpretation: Tele-radiologist Report (CT chest-no acute traumatic injuries) Abdomen/Pelvis CT Interpretation: Tele-radiologist Report (No acute traumatic injuries) Ordered Tests: Medication Summary Discontinued Medications Generic Name Dose Route Start Last Admin Trade Name Freq PRN Reason Stop Dose Admin Sodium Chloride 1,000 mls @ 999 mls/hr 03/13/22 15:32 03/13/22 17:01 Sodium Chloride 0.9% 1000 Ml IV 03/13/22 16:32 0 mls/hr .Q1H1M STA Infusion Sodium Chloride Confirm 03/13/22 15:34 Sodium Chloride 0.9% 1000 Ml Administered 03/13/22 15:35 Dose 1,000 mls @ ud .ROUTE .STK-MED ONE Sodium Chloride Confirm 03/13/22 18:29 Sodium Chloride 0.9% 1000 Ml Administered 03/13/22 18:30 Dose 1,000 mls @ ud .ROUTE .STK-MED ONE Lidocaine HCl Confirm 03/13/22 16:52 Lidocaine Hcl 1% 20 Ml Mdv 20 Ml Ml Administered 03/13/22 16:53 Dose 1 ml .ROUTE .STK-MED ONE Phytonadione 10 mg 03/13/22 17:27 03/13/22 17:31 Phytonadione 10 Mg/Ml Amp SQ 03/13/22 17:28 10 mg STAT ONE Administration Phytonadione Confirm 03/13/22 17:30 Phytonadione 10 Mg/Ml Amp Administered 03/13/22 17:31 Dose 10 mg .ROUTE .STK-MED ONE Lab/Rad Data: Laboratory Result Diagrams 03/13/22 17:36 03/13/22 17:36 Laboratory Results 03/13/22 03/13/22 03/13/22 Range/Units 17:45 17:36 17:36 WBC (4.0-10.5) x10^3/uL RBC (4.1-5.4) x10^6/uL Hgb (12.0-16.0) g/dL Hct (35-47) % MCV (78-100) fL MCH (26-32) pg MCHC (32-36) g/dL RDW (11.5-14.0) % Plt Count (150-450) x10^3/uL MPV (7.5-11.0) fL Gran % (36.0-66.0) % Immature Gran % (Auto) (0.00-0.4) % Nucleat RBC Rel Count (0.00-0.1) % Eos # (Auto) (0-0.5) x10^3/uL Immature Gran # (Auto) (0.00-0.03) x10^3u/L Absolute Lymphs (auto) (1.0-4.6) x10^3/uL Absolute Monos (auto) (0.0-1.3) x10^3/uL Absolute Nucleated RBC (0.00-0.01) x10^3u/L Lymphocytes % (24.0-44.0) % Monocytes % (0.0-12.0) % Eosinophils % (0.00-5.0) % Basophils % (0.0-0.4) % Absolute Granulocytes (1.4-6.9) x10^3/uL Basophils # (0-0.4) x10^3/uL PT 26.6 H (9.4-12.5) SECONDS INR 2.75 (0.8-3.0) APTT 35.9 (25.1-36.5) SECONDS Sodium 137 (137-145) mmol/L Potassium 4.2 (3.5-5.1) mmol/L Chloride 96 L (98-107) mmol/L Carbon Dioxide 32 H (22-30) mmol/L Anion Gap 13.2 (5-15) MEQ/L BUN 29 H (7-17) mg/dL Creatinine 3.76 H (0.52-1.04) mg/dL Estimated GFR 12.3 ML/MIN Glucose 266 H (74-106) mg/dL Calcium 8.4 (8.4-10.2) mg/dL Total Bilirubin 0.30 (0.2-1.3) mg/dL AST 25 (14-36) U/L ALT 17 (0-35) U/L Alkaline Phosphatase 98 (38-126) U/L Serum Total Protein 6.4 (6.3-8.2) g/dL Albumin 3.5 (3.5-5.0) g/dL ABO Group A Rh Factor POSITIVE Antibody Screen NEGATIVE (NEGATIVE) 03/13/22 Range/Units 17:36 WBC 15.1 H (4.0-10.5) x10^3/uL RBC 2.47 L (4.1-5.4) x10^6/uL Hgb 7.6 L (12.0-16.0) g/dL Hct 24.9 L (35-47) % MCV 100.8 H (78-100) fL MCH 30.8 (26-32) pg MCHC 30.5 L (32-36) g/dL RDW 16.6 H (11.5-14.0) % Plt Count 266 (150-450) x10^3/uL MPV 9.9 (7.5-11.0) fL Gran % 83.1 H (36.0-66.0) % Immature Gran % (Auto) 0.7 H (0.00-0.4) % Nucleat RBC Rel Count 0.0 (0.00-0.1) % Eos # (Auto) 0.25 (0-0.5) x10^3/uL Immature Gran # (Auto) 0.11 H (0.00-0.03) x10^3u/L Absolute Lymphs (auto) 1.10 (1.0-4.6) x10^3/uL Absolute Monos (auto) 0.89 (0.0-1.3) x10^3/uL Absolute Nucleated RBC 0.00 (0.00-0.01) x10^3u/L Lymphocytes % 7.3 L (24.0-44.0) % Monocytes % 5.9 (0.0-12.0) % Eosinophils % 1.7 (0.00-5.0) % Basophils % 1.3 (0.0-0.4) % Absolute Granulocytes 12.54 H (1.4-6.9) x10^3/uL Basophils # 0.19 (0-0.4) x10^3/uL PT (9.4-12.5) SECONDS INR (0.8-3.0) APTT (25.1-36.5) SECONDS Sodium (137-145) mmol/L Potassium (3.5-5.1) mmol/L Chloride (98-107) mmol/L Carbon Dioxide (22-30) mmol/L Anion Gap (5-15) MEQ/L BUN (7-17) mg/dL Creatinine (0.52-1.04) mg/dL Estimated GFR ML/MIN Glucose (74-106) mg/dL Calcium (8.4-10.2) mg/dL Total Bilirubin (0.2-1.3) mg/dL AST (14-36) U/L ALT (0-35) U/L Alkaline Phosphatase (38-126) U/L Serum Total Protein (6.3-8.2) g/dL Albumin (3.5-5.0) g/dL ABO Group Rh Factor Antibody Screen (NEGATIVE) - Progress Progress Note: 03/18/22 08:26 Pt bleeding profusely from L parietal scalp lac upon arrival, so stapled immediately w numerous karl to obtain hemostasis. Pt rushed to CT for emergent CT of head/C-spine/Chest, abdomen, and pelvis which were all negative for acute injury, except for scalp hematoma. Scalp lac, approx 3cm, still bleeding, so revision of repair done. Hair cut to obtain better exposure, and numerous karl again applied. Laceration closed but unable to obtain adequate hemostasis due to coumadin. 10mg sq VitK given, FFP ordered, and packed RBC's considered. Dr. Jw Serna saw pt in ER while transfer to [facility] was initiated. Dr. Serna applied pressure bandage to pt, which obtained adequate hemostasis. [facility] accepted pt, and FFP started. Pt in stable condition when helicopter crew assumed care of pt. Pt transferred due to excessive bleeding, coagulopathy, unable to obtain adequate hemostasis w repair, and end stage renal disease requiring chronic dialysis. Nursing note and vital signs reviewed No food or housing insecurities noted All labs and CT results reviewed and shared w pt Additional history per daughter Pt and daughter ok w transfer C1 fx old and previously treated at [facility]/neurologically intact during entire visit Counseled pt/family regarding: diagnosis, rad results - Departure Departure Disposition: Transfer Clinical Impression: Scalp laceration, Coagulopathy Condition: Stable Critical Care Time: Yes Critical Care Time(excluding separately billable procedures): Critical 30-74 mins Referrals: [facility] [Primary Care Provider] - Follow up/PCP as directed
[2022-03-13] MEDS ORDERED: XYLOCAINE 1% HCL 20 ML MDV ONE (16:52)
[2022-03-13] MEDS ORDERED: Vitamin K 10 MG/ML SQ ONE (17:27)
[2022-03-13] MEDS ORDERED: Vitamin K 10 MG/ML ONE (17:30)
[2022-03-13 17:39] LABS: Absolute Neutrophil Ct (ANC) 12.54 x10^3/uL (1.4-6.9); BASOPHIL % 1.3 % (0.0-0.4); Basophil (Absolute #) 0.19 x10^3/uL (0-0.4); Eosinophil % 1.7 % (0.00-5.0); Eosinophil (Absolute #) 0.25 x10^3/uL (0-0.5); Hematocrit 24.9 % (35-47); Hemoglobin 7.6 g/dL (12.0-16.0); IMMATURE GRAN # 0.11 x10^3u/L (0.00-0.03); IMMATURE GRAN % 0.7 % (0.00-0.4); Lymphocytes % 7.3 % (24.0-44.0); Mean Cell Volume 100.8 fL (78-100); Mean Corpuscular Hemoglobin 30.8 pg (26-32); Mean Corpuscular Hgb Concent. 30.5 g/dL (32-36); Mean Platelet Volume 9.9 fL (7.5-11.0); Monocyte (Absolute #) 0.89 x10^3/uL (0.0-1.3); Monocytes % 5.9 % (0.0-12.0); Neutrophil % 83.1 % (36.0-66.0); Platelet Count 266 x10^3/uL (150-450); Red Blood Count 2.47 x10^6/uL (4.1-5.4); Red Cell Distribution Width 16.6 % (11.5-14.0); White Blood Count 15.1 x10^3/uL (4.0-10.5)
[2022-03-13 17:52] LABS: ALBUMIN 3.5 g/dL (3.5-5.0); BILIRUBIN,TOTAL 0.3 mg/dL (0.2-1.3); Calcium 8.4 mg/dL (8.4-10.2); Creatinine 1 3.76 mg/dL (0.52-1.04); EST GLOMERULAR FILTRATION RATE 12.3 ML/MIN; Potassium 4.2 mmol/L (3.5-5.1); Total Protein 6.4 g/dL (6.3-8.2)
[2022-03-13 17:54] LABS: INR 2.75 (0.8-3.0); PROTIME 26.6 SECONDS (9.4-12.5); PTT 35.9 SECONDS (25.1-36.5)
[2022-03-13 18:42] LABS: ABO TYPING A; Antibody Screen NEGATIVE (NEGATIVE); RH TYPING POSITIVE
[2022-03-13 18:56] VITALS: BP 152/60
[2022-03-13 19:04] VITALS: PULSE 90
[2022-03-13 19:08] LABS: ANION GAP 13.2 MEQ/L (5-15)
--- NOTE | 2022-03-13 20:13 | XRAY ---
Indication: Posterior head injury following fall. Laceration. Blood thinner therapy. Multiple contiguous axial images obtained through the head without contrast. Comparison: December 03, 2021 Again age-appropriate global atrophy and minimal periventricular degenerative micro-ischemia. No acute intracranial hemorrhage, abnormal extra-axial fluid collection, or mass effect. Fourth ventricle is midline without hydrocephalus. New large left parietal occipital scalp hematoma with cutaneous karl. Bony calvarium intact. Visualized paranasal sinuses and mastoid air cells are clear. Impression: Left parietal occipital scalp hematoma. No underlying fracture or acute intracranial abnormalities. Comment: Preliminary interpretation made by [facility]. No critical discrepancy.
--- NOTE | 2022-03-13 20:19 | XRAY ---
Indication: Posterior head injury following fall. Laceration. Blood thinner therapy. Multiple contiguous axial images obtained through the cervical spine. Sagittal and coronal reformatted images obtained. Comparison: December 03, 2021 Again osteopenia and C3-C5 fusion with intact anterior/posterior fusion hardware. Axial images again demonstrates nondisplaced right posterior C1 fracture without obvious bridging callus formation. There is now nondisplaced nonunited left posterior C1 fracture, previously a tiny hairline fracture. Remaining levels negative for acute fracture, suspicious bony lesions, or spinal canal stenosis. Stable atlantoaxial and C6-C7 degenerative changes. Sagittal and coronal reformatted images again demonstrate normal alignment with C6-C7 disc space narrowing. No acute compression fracture, subluxation, or jumped facet. Normal appearing craniocervical junction. Visualized noncontrasted soft tissues again demonstrates right lobe thyroidectomy and mild scattered vascular calcifications. Lung apices demonstrates left apical calcified granuloma not previously included. Impression: 1. Ununited nondisplaced bilateral posterior C1 fractures as detailed. 2. Again osteopenia, multilevel degenerative changes, and C3-C5 fusion surgery with intact hardware. Comment: Preliminary interpretation made by [facility]. No critical discrepancy.
--- NOTE | 2022-03-13 20:25 | XRAY ---
Indication: Bilateral rib pain following fall. Multiple contiguous axial images obtained through the chest without contrast. Comparison: None Lungs demonstrates moderate bilateral mid and lower lung subsegmental atelectasis/scarring and tiny nonspecific bilateral effusions. No pneumothorax. Heart not enlarged with CABG. Aorta is mildly arteriosclerotic without aneurysm. Small subcarinal and right hilar calcified nodes. No pathologic mediastinal lymphadenopathy. Bony thorax intact with osteopenia, mild/moderate degenerative changes throughout the spine, and remote L1 superior endplate fracture versus Schmorl node. Lateral arc right 7 rib demonstrates linear sclerosis along its course of uncertain clinical significance. Limited upper abdomen demonstrates hepatic/splenic calcified granulomas, bilateral renal atrophy, and 1.2 cm left mid renal exophytic cyst. Impression: 1. Bilateral subsegmental atelectasis/scarring and tiny nonspecific bilateral effusions. 2. Chronic findings including arteriosclerotic disease, CABG surgery, chronic bony findings, bilateral renal atrophy, left renal cyst, and old granulomatous disease. Comment: Preliminary interpretation made by [facility]. No critical discrepancy.
--- NOTE | 2022-03-13 20:29 | XRAY ---
Indication: Bilateral abdomen and hip pain following fall. Multiple contiguous axial images obtained through the abdomen and pelvis without contrast. Comparison: None CT chest reported separately. Stomach is distended with food/fluid. Noncontrasted stomach and bowel loops appear nonobstructed. Scattered sigmoid diverticulosis without diverticulitis. Cholecystectomy, appendectomy, and hysterectomy reported. No free fluid/air. Bilateral renal atrophy with a few small left renal cysts, largest lower pole measuring 1.4 cm. Incidental hepatic/splenic calcified granulomas. Remaining liver, pancreas, spleen, adrenal glands, kidneys, ureters, and bladder are unremarkable for noncontrast exam. Moderate scattered vascular calcifications. Distal fusiform abdominal aortic aneurysm measuring 3.2 x 3.1 cm. Osseous structures intact with osteopenia, mild/moderate multilevel thoracolumbar degenerative spondylosis, bilateral L5 spondylolysis with 1 cm listhesis, L1 superior endplate Schmorl node versus remote fracture, and mild degenerative changes both hips. Impression: 1. Sigmoid diverticulosis, bilateral renal atrophy with left renal cysts, arteriosclerotic disease with AAA, chronic bony findings, and old granulomatous disease. 2. Remaining CT abdomen/pelvis without contrast exam is negative. Comment: Preliminary interpretation made by [facility]. No critical discrepancy.
[2022-03-18 07:57] VITALS: O2SAT 96
== END 2022-03-13 19:00 | disposition short-term general hospital (02) ==
LOC: ED 15:09
DX: S01.01XA Laceration without foreign body of scalp, initial encounter (principal); W18.30XA Fall on same level, unspecified, initial encounter; Y93.01 Activity, walking, marching and hiking; Y92.481 Parking lot as the place of occurrence of the external cause; D68.32 Hemorrhagic disorder due to extrinsic circulating anticoagulants; R58 Hemorrhage, not elsewhere classified; T45.515A Adverse effect of anticoagulants, initial encounter; E11.42 Type 2 diabetes mellitus with diabetic polyneuropathy; E11.22 Type 2 diabetes mellitus with diabetic chronic kidney disease; N18.9 Chronic kidney disease, unspecified; Z79.4 Long term (current) use of insulin; Z79.01 Long term (current) use of anticoagulants; Z79.899 Other long term (current) drug therapy
CPT/HCPCS: 36415; 36430; 70450; 71250; 72125; 74176; 80053; 85025; 85610; 85730; 86850; 86900; 86901; 86927; 96372; 99284; P9017; J3430

== ENCOUNTER 2022-06-10 14:13 | Emergency (ER) | payer MEDICARE ==
[2022-06-10 14:50] LABS: Absolute Neutrophil Ct (ANC) 9.68 x10^3/uL (1.4-6.9); Basophil (Absolute #) 0.12 x10^3/uL (0-0.4); Eosinophil % 1.5 % (0.00-5.0); Eosinophil (Absolute #) 0.18 x10^3/uL (0-0.5); Hematocrit 43.7 % (35-47); Hemoglobin 14.1 g/dL (12.0-16.0); IMMATURE GRAN # 0.05 x10^3u/L (0.00-0.03); IMMATURE GRAN % 0.4 % (0.00-0.4); Lymphocyte (Absolute #) 1.15 x10^3/uL (1.0-4.6); Lymphocytes % 9.4 % (24.0-44.0); Mean Cell Volume 100.2 fL (78-100); Mean Corpuscular Hemoglobin 32.3 pg (26-32); Mean Corpuscular Hgb Concent. 32.3 g/dL (32-36); Monocyte (Absolute #) 0.99 x10^3/uL (0.0-1.3); Monocytes % 8.1 % (0.0-12.0); Neutrophil % 79.6 % (36.0-66.0); Platelet Count 238 x10^3/uL (150-450); Red Blood Count 4.36 x10^6/uL (4.1-5.4); Red Cell Distribution Width 14.6 % (11.5-14.0); White Blood Count 12.2 x10^3/uL (4.0-10.5)
--- NOTE | 2022-06-10 14:52 | ERPHSYRPT ---
- History of Present Illness Time Seen by Provider: 06/10/22 14:25 Source: patient Exam Limitations: no limitations Patient Subjective Stated Complaint: PT states "I was at dialysis and I passed out when they got me up to weigh me." Triage Nursing Assessment: PT presented alert and oriented X 3, skin pwd. Pt able to speak in clear full sentences. Pt resting comfortably on the bed. PT in no apparent respiratory distress. Physician History: Patient is here with syncope after dialysis. Patient states that she had her normal run of dialysis today. When she stood up afterwards she felt off balance. She then passed out. No prior syncopal feelings no chest pain, shortness of breath, fever, chills. Patient states that they gave her 500 mL back. Therefore, felt improved. She is back to her baseline. She is currently asymptomatic at this time. Allergies/Adverse Reactions: Penicillins Allergy (Verified 03/13/22 15:33) Itching rash Sulfa (Sulfonamide Antibiotics) [Sulfa(Sulfonamide Antibiotics)] Allergy (Verified 03/13/22 15:33) Itching rash Home Medications: Lovastatin 20 mg PO HS 10/04/11 [History] Ergocalciferol (Vitamin D2) [Vitamin D2] 50,000 unit PO WEEKLY 02/28/17 [History] Gabapentin [Neurontin ] 300 mg PO QHS 02/28/17 [History] Insulin Detemir [Levemir Flextouch] 30 unit SQ HS 02/28/17 [History] Alendronate Sodium 70 mg [Fosamax 70 MG] 35 mg PO WEEKLY 11/22/19 [History] Insulin Lispro Protamin/Lispro [Humalog Mix 75-25 Vial] 12 unit SQ UD PRN 11/22/19 [History] Amiodarone HCl 100 mg PO DAILY 08/28/20 [History] Aspirin EC 81 mg [Ecotrin 81 mg] 81 mg PO DAILY 08/28/20 [History] Folic Acid 1 mg [Folate 1 mg] 1 mg PO DAILY 08/28/20 [History] Isosorbide Mononitrate 60 mg [Imdur 60MG] 60 mg PO DAILY 08/28/20 [History] Levothyroxine Sodium 25 Mcg [Synthroid 25 Mcg] 50 mcg PO DAILY 08/28/20 [History] Allopurinol 100 mg [Zyloprim 100 mg] 100 mg PO BID 12/16/20 [History] Midodrine HCl [Proamatine] 15 mg PO TID 12/16/20 [History] Sevelamer Carbonate 800 mg PO TIDWM 04/29/21 [History] Albuterol Common Canister [Ventolin Common Canister] 2 puff IH Q4HPRN PRN 05/31/21 [History] Furosemide 20 mg [Lasix 20 mg] 40 mg PO DAILY 05/31/21 [History] Pen Needle, Diabetic [Bd Ultra-Fine Pen Needle] 08/31/21 [History] Hx Tetanus, Diphtheria Vaccination/Date Given: Yes Hx Influenza Vaccination/Date Given: Yes Hx Pneumococcal Vaccination/Date Given: Yes Travel Risk - International Travel Have you traveled outside of the country in past 3 weeks: No - Coronavirus Screening Are you exhibiting any of the following symptoms?: No Close contact with a COVID-19 positive Pt in past 14-21 Days: No - Vaccine Status Have you recieved a Covid-19 vaccination: Yes 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 - Vaccination Dates Date of 2cond Vaccination (if applicable): UNK - Review of Systems Constitutional: No Fever, No Chills Eyes: No Symptoms Ears, Nose, & Throat: No Symptoms Respiratory: No Cough, No Dyspnea Cardiac: No Chest Pain, No Edema, No Syncope Abdominal/Gastrointestinal: No Abdominal Pain, No Nausea, No Vomiting, No Diarrhea Genitourinary Symptoms: No Dysuria Musculoskeletal: No Back Pain, No Neck Pain Skin: No Rash Neurological: No Dizziness, No Focal Weakness, No Sensory Changes Psychological: No Symptoms Endocrine: No Symptoms All Other Systems: Reviewed and Negative - Past Medical History Pertinent Past Medical History: Yes Neurological History: Peripheral Neuropathy, TIA ENT History: Cataracts Cardiac History: Other Respiratory History: COPD Endocrine Medical History: Adrenal Insufficiency, Diabetes Type II, Hypothyroidism Musculoskeletal History: Osteoarthritis GI Medical History: Gallbladder Disease History: No Pertinent History Psycho-Social History: Anxiety Female Reproductive Disorders: Cervical Cancer, Other Other Medical History: PT NOTES WHEN SHE GETS TIRED SHE DRAGS HER L FOOT. THYROID SURGERY 4-5 YEARS AGO. OPEN HEART SURGERY 06/30/20 WITH CABG X3 , HAD VALVE REPLACED AND A STINT REPLACED. PT HAS DIALYSIS 2X/WEEK AT [facility]. - Past Surgical History Past Surgical History: Yes Neuro Surgical History: No Pertinent History Cardiac: CABG, Cardiac Catheterization, Cardiac Stent Respiratory: No Pertinent History Gastrointestinal: Cholecystectomy Genitourinary: No Pertinent History Musculoskeletal: Orthopedic Surgery Female Surgical History: Hysterectomy Other Surgical History: ANKLE, KNEE, SHOULDER SURGERY, cataract surgery both eyes, states "cracked a rib pulling laundry out,dialysis 5 times during hospitalization none at this time, triple bypass valve replacement and stent placed,colonoscopy - Social History Smoking Status: Never smoker Exposure to second hand smoke: No Drug Use: none Patient Lives Alone: Yes Significant Family History: no pertinent family hx - Nursing Vital Signs Nursing Vital Signs: Initial Vital Signs Temperature 97.5 F 06/10/22 14:16 Pulse Rate 92 H 06/10/22 14:16 Respiratory Rate 20 06/10/22 14:16 Blood Pressure 147/69 06/10/22 14:16 O2 Sat by Pulse Oximetry 98 06/10/22 14:16 Pain Scale Pain Intensity 0 - Physical Exam General Appearance: no apparent distress, alert Eye Exam: PERRL/EOMI, eyes nml inspection Ears, Nose, Throat Exam: normal ENT inspection, TMs normal, pharynx normal, moist mucous membranes Neck Exam: normal inspection, non-tender, supple, full range of motion Respiratory Exam: normal breath sounds, lungs clear, No respiratory distress Cardiovascular Exam: regular rate/rhythm, normal heart sounds, normal peripheral pulses Gastrointestinal/Abdomen Exam: soft, normal bowel sounds, No tenderness, No mass Back Exam: normal inspection, normal range of motion, No CVA tenderness, No vertebral tenderness Extremity Exam: normal inspection, normal range of motion, pelvis stable Neurologic Exam: alert, oriented x 3, cooperative, normal mood/affect, nml cereb ellar function, nml station & gait, sensation nml, No motor deficits Skin Exam: normal color, warm, dry, No rash Lymphatic Exam: No adenopathy SpO2 Interpretation: normal SpO2: 98 - Course Nursing assessment & vital signs reviewed: Yes EKG Interpreted by Me: A-fib (History of A-fib, in A-fib right now. 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 STAT Care 06/10/22 14:32 Completed EKG-ER Only STAT Care 06/10/22 14:32 Completed IV Insertion STAT Care 06/10/22 14:32 Completed CHEST 1 VIEW (PORTABLE) Stat Exams 06/10/22 14:32 Completed CBC W DIFF Stat Lab 06/10/22 14:10 Completed CMP Stat Lab 06/10/22 14:10 Completed PT INR [PROTIME WITH INR] Stat Lab 06/10/22 14:10 Completed TROPONIN Q4H Lab 06/10/22 14:10 Completed TROPONIN Q4H Lab 06/10/22 16:33 Completed Medication Summary Discontinued Medications Generic Name Dose Route Start Last Admin Trade Name Freq PRN Reason Stop Dose Admin Potassium Chloride 40 meq 06/10/22 15:33 06/10/22 15:51 Potassium Chloride Tab 10 Meq Tab PO 06/10/22 15:34 40 meq STAT ONE Administration Potassium Chloride Confirm 06/10/22 15:50 Potassium Chloride Tab 10 Meq Tab Administered 06/10/22 15:51 Dose 40 meq PO .STK-MED ONE Lab/Rad Data: Laboratory Result Diagrams 06/10/22 14:10 06/10/22 14:10 Laboratory Results 06/10/22 06/10/22 06/10/22 Range/Units 16:33 14:10 14:10 WBC (4.0-10.5) x10^3/uL RBC (4.1-5.4) x10^6/uL Hgb (12.0-16.0) g/dL Hct (35-47) % MCV (78-100) fL MCH (26-32) pg MCHC (32-36) g/dL RDW (11.5-14.0) % Plt Count (150-450) x10^3/uL MPV (7.5-11.0) fL Gran % (36.0-66.0) % Immature Gran % (Auto) (0.00-0.4) % Nucleat RBC Rel Count (0.00-0.1) % Eos # (Auto) (0-0.5) x10^3/uL Immature Gran # (Auto) (0.00-0.03) x10^3u/L Absolute Lymphs (auto) (1.0-4.6) x10^3/uL Absolute Monos (auto) (0.0-1.3) x10^3/uL Absolute Nucleated RBC (0.00-0.01) x10^3u/L Lymphocytes % (24.0-44.0) % Monocytes % (0.0-12.0) % Eosinophils % (0.00-5.0) % Basophils % (0.0-0.4) % Absolute Granulocytes (1.4-6.9) x10^3/uL Basophils # (0-0.4) x10^3/uL PT 9.8 (9.4-12.5) SECONDS INR 0.89 (0.8-3.0) Sodium (137-145) mmol/L Potassium (3.5-5.1) mmol/L Chloride (98-107) mmol/L Carbon Dioxide (22-30) mmol/L Anion Gap (5-15) MEQ/L BUN (7-17) mg/dL Creatinine (0.52-1.04) mg/dL Estimated GFR ML/MIN Glucose (74-106) mg/dL Calcium (8.4-10.2) mg/dL Total Bilirubin (0.2-1.3) mg/dL AST (14-36) U/L ALT (0-35) U/L Alkaline Phosphatase (38-126) U/L Troponin I 0.053 H* 0.055 H* (0.000-0.034) ng/mL Serum Total Protein (6.3-8.2) g/dL Albumin (3.5-5.0) g/dL 06/10/22 06/10/22 Range/Units 14:10 14:10 WBC 12.2 H (4.0-10.5) x10^3/uL RBC 4.36 (4.1-5.4) x10^6/uL Hgb 14.1 (12.0-16.0) g/dL Hct 43.7 (35-47) % MCV 100.2 H (78-100) fL MCH 32.3 H (26-32) pg MCHC 32.3 (32-36) g/dL RDW 14.6 H (11.5-14.0) % Plt Count 238 (150-450) x10^3/uL MPV 10.0 (7.5-11.0) fL Gran % 79.6 H (36.0-66.0) % Immature Gran % (Auto) 0.4 (0.00-0.4) % Nucleat RBC Rel Count 0.0 (0.00-0.1) % Eos # (Auto) 0.18 (0-0.5) x10^3/uL Immature Gran # (Auto) 0.05 H (0.00-0.03) x10^3u/L Absolute Lymphs (auto) 1.15 (1.0-4.6) x10^3/uL Absolute Monos (auto) 0.99 (0.0-1.3) x10^3/uL Absolute Nucleated RBC 0.00 (0.00-0.01) x10^3u/L Lymphocytes % 9.4 L (24.0-44.0) % Monocytes % 8.1 (0.0-12.0) % Eosinophils % 1.5 (0.00-5.0) % Basophils % 1.0 (0.0-0.4) % Absolute Granulocytes 9.68 H (1.4-6.9) x10^3/uL Basophils # 0.12 (0-0.4) x10^3/uL PT (9.4-12.5) SECONDS INR (0.8-3.0) Sodium 139 (137-145) mmol/L Potassium 3.0 L* (3.5-5.1) mmol/L Chloride 90 L (98-107) mmol/L Carbon Dioxide 37 H (22-30) mmol/L Anion Gap 15.3 H (5-15) MEQ/L BUN 16 (7-17) mg/dL Creatinine 2.46 H (0.52-1.04) mg/dL Estimated GFR 20.1 ML/MIN Glucose 241 H (74-106) mg/dL Calcium 9.5 (8.4-10.2) mg/dL Total Bilirubin 0.50 (0.2-1.3) mg/dL AST 40 H (14-36) U/L ALT 27 (0-35) U/L Alkaline Phosphatase 124 (38-126) U/L Troponin I (0.000-0.034) ng/mL Serum Total Protein 8.9 H (6.3-8.2) g/dL Albumin 4.7 (3.5-5.0) g/dL - Progress Progress: improved Progress Note: 06/10/22 14:51 differential diagnosis includes: PNA, STEMI, NSTEMI, other infection, musculoskeletal pain, pneumothorax - We'll obtain basic labs, fluids, EKG, troponin, chest x-ray - EKG shows atrial fibrillation. Patient has a history of atrial fibrillation. No RVR - O2 saturations consistently greater than 95%. - CXR shows no pneumonia - my read 06/10/22 20:24 First troponin is slightly elevated. However, similar to previous baseline troponins. Repeat troponin showed no change. Chest x-ray shows probable pneumonia. Patient has a slightly elevated white blood cell count. Patient observed for several hours in the emergency department. She had no further hypotensive episodes, chest pain, shortness of breath. Patient remained high on her O2 and was able to eat and drink. Patient most likely has a slight pneumonia in the setting of dialysis caused her to have a, syncopal episode. We will treat patient with antibiotics going home. She will need close follow-up with her PCP. Patient and her daughter state their understanding. They will return here sooner for any new or changing symptoms. 06/10/22 20:27 Counseled pt/family regarding: lab results, diagnosis, need for follow-up, rad results Medical Desision Making - Independent Historian Additional History obtained from: Child - Departure Departure Disposition: Home Clinical Impression: Hypokalemia, Pneumonia Condition: Stable Critical Care Time: No Referrals: [facility] [Primary Care Provider] - Follow up/PCP as directed Instructions: Pneumonia, Adult (DC), Syncope (Fainting) (DC) Prescriptions: Potassium Chloride Tab* [Klor Con] 10 meq PO DAILY #5 tab Cefpodoxime Proxetil 200 mg [Vantin 200 mg] 200 mg PO BID 7 Days #14 tablet Azithromycin 250 mg [Zithromax 250 MG TABLET] 250 mg PO ZPACK #6 tablet
[2022-06-10 15:04] LABS: INR 0.89 (0.8-3.0); PROTIME 9.8 SECONDS (9.4-12.5)
[2022-06-10 15:11] LABS: ALBUMIN 4.7 g/dL (3.5-5.0); ANION GAP 15.3 MEQ/L (5-15); BILIRUBIN,TOTAL 0.5 mg/dL (0.2-1.3); Calcium 9.5 mg/dL (8.4-10.2); Creatinine 1 2.46 mg/dL (0.52-1.04); EST GLOMERULAR FILTRATION RATE 20.1 ML/MIN; Total Protein 8.9 g/dL (6.3-8.2)
[2022-06-10] MEDS ORDERED: Klor Con PO ONE ×2 (15:33→15:50)
--- NOTE | 2022-06-10 16:27 | XRAY ---
CLINICAL HISTORY:chest pain; COMPARISON:None; TECHNIQUES:X-ray chest 1 viewfrontal view; FINDINGS: Mild airspace infiltrate is seen in the right lower lung zone, could be infective etiology. Bilateral hilar regions showA few hyperdense nodular opacities, which could beAnd bronchi are tiny hilar lymph nodes. The trachea is central. Sternal sutures are seen in central. Orthopedic Prosthesis in the cervical spine. Both costophrenic angles are normal. Bony rib cagee appears unremarkable. IMPRESSION: Mild airspace infiltrate in the right lower lung zone, possibly infective etiology. Electronically Signed by: Goldie Marin MD. (06/10/2022 15:16:14 SECURITY SERGEANT)
[2022-06-10 16:34] VITALS: O2SAT 98
[2022-06-10 18:35] VITALS: BP 118/56
[2022-06-10 18:36] VITALS: PULSE 72
== END 2022-06-10 18:24 | disposition home or self-care (01) ==
LOC: ED 14:13
DX: J18.9 Pneumonia, unspecified organism (principal); E87.6 Hypokalemia; R55 Syncope and collapse; E11.42 Type 2 diabetes mellitus with diabetic polyneuropathy; I48.91 Unspecified atrial fibrillation; Z99.2 Dependence on renal dialysis; Z79.4 Long term (current) use of insulin; Z79.899 Other long term (current) drug therapy
CPT/HCPCS: 36000; 36415; 71045; 80053; 84484; 85025; 85610; 93005; 93041; 99284; A9270-GY